=== PATIENT | female | born 1935 | race Caucasian/White ===

== ENCOUNTER 2025-04-14 10:59 | Outpatient (AMB) | payer MEDICARE, BC, SELFPAY ==
--- NOTE | 2025-04-14 11:04 | MHC.OFFVIS ---
Vital Signs 04/14/25 11:05 Height 5 ft Weight 117 lb BMI 22.8 BP 160/80 H Blood Pressure Location Lt brachial Position Sitting Pulse 63 Pulse Source Pulse Oximeter Pulse Oximetry (%) 98 Oxygen Delivery Method Room Air Intake Visit Reasons: hand pain Intake Note: Patient presents today for bilateral hand pain. Accompanied by: Self / Same As Patient Allergies azithromycin Allergy (Mild, Verified 04/14/25 11:08) Hives barium sulfate Allergy (Mild, Verified 04/14/25 11:12) Nausea cefuroxime (From Ceftin) Allergy (Mild, Verified 04/14/25 11:12) Nausea divalproex sodium (From Depakote) Allergy (Mild, Verified 04/14/25 11:12) Anxiety erythromycin base (From Erythrocin) Allergy (Mild, Verified 04/14/25 11:08) Hives hydroxyzine Allergy (Mild, Verified 04/14/25 11:12) Nausea nortriptyline Allergy (Mild, Verified 04/14/25 11:08) Hives Sulfa (Sulfonamide Antibiotics) Allergy (Mild, Verified 04/14/25 11:12) Diarrhea tetracycline Allergy (Mild, Verified 04/14/25 11:08) Hives zolpidem (From Ambien) Allergy (Mild, Verified 04/14/25 11:12) Stomach Upset HPI HPI hand pain: Details: New patient evaluation for hand pain. History is limited from patient. She denies hand pain. She reports that she has swollen hands. She has been on prednisone 5 mg daily for at least a few months. She is unable to recount when prednisone was started. She denies being on a higher dose of prednisone. She denies having joint pain prior to starting prednisone. She reports a joint swelling has not changed since being on prednisone 5 mg daily. She has not experienced any side effect from long-term prednisone use. She has history of osteoporosis. She does not have any pain in any other joint. She wishes that she could walk. She has been in a wheelchair for 2 years. She is able to stand up and use a walker at home. She has limited WET SANDER support 3 days a week. She is depressed. She saw PCP who prescribed her medication for her depression but it has not helped her. Review of system is significant for 7 lb weight loss, persistent diarrhea (attributed to anxiety), 3 pregnancies with 1 miscarriage. She denies ocular symptoms, chest pain, dyspnea, pleurisy, urinary symptoms, rash or any history of hematological abnormalities. Denies family history of rheumatological disease. Past medical history significant for hypertension, osteoporosis, right upper extremity DVT, macular degeneration and depression. Past surgical history is significant for appendectomy 1956 and back surgery 2020. Medication list reviewed with patient She denies smoking. She stopped smoking 20 years ago. She does not drink alcohol or use recreational drugs. Physical Exam Vital Signs: Last Vital Signs Pulse 63 04/14/25 11:05 BP 160/80 H 04/14/25 11:05 Pulse Ox 98 04/14/25 11:05 Oxygen Delivery Method Room Air 04/14/25 11:05 BMI result Body Mass Index 22.8 Const Other: Examined in wheelchair General: Comfortable CVS: RRR Respiratory: clear to auscultation bilaterally. Good respiratory effort Skin: No lesions seen MSK: She is able to stand up from wheelchair. She has mild synovitis right 2nd PIP with tenderness on palpation. Heberden nodes and Jeane's nodes present. She has subluxation of DIPJ knees. Left 3rd PIP is hyperextended. Normal range of motion of upper extremity. Knee flexion 90 degrees bilateral. She is able to rotate her hips. No MTP tenderness. Paste planus present. She also has subluxation right 2nd and 3rd toes and left 2nd toe. Tailor's bunions present. 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 She has been on prednisone 5 mg daily for at least a few months, which may be treating inflammatory arthritis if she had it prior to starting prednisone by PCP. History is limited during evaluation. Code(s): M79.641 - Pain in right hand; M79.642 - Pain in left hand Category: Medical Plan: X-ray bilateral hands ordered I am requesting clinical notes from PCP from her visits when she was evaluated for hand pain and swelling She had labs done in PCP's office recently. I am requesting lab results I recommend that she follow up with PCP for depression management Return to clinic in 1-2 months (2) On prednisone therapy: Code(s): Z79.52 - intermission coordinator (current) use of systemic steroids Category: Medical Plan: See above Orders: Orders XR Hand Bilat min 3v Today M79.641 - Pain in right hand, M79.642 - Pain in left hand, Z79.52 - intermission coordinator (current) use of systemic steroids Coding Level of Care Code New Pt Level 4 (88388) Diagnoses Bilateral hand pain M79.641; M79.642 On prednisone therapy Z79.52
[2025-04-14 11:05] VITALS: BP 160/80; PULSE 63; O2SAT 98; BMI 22.8
--- OUTSIDE RECORDS SUMMARY | 2025-04-14 13:07 | XMS_ITS | Encounter Summary ---
Author Organization [facility] Address [address] [place] [address] Care Team Providers Care Middle [employer] Music Teacher Name Role Phone Cherelle Bailey MD Primary Care Provider Encounter Details Date Type Department Care Team (Late st Contact Info) Description 03/17/2025 Lab Requisition [facility] - Main Lab [address] [facility] [place] [phone] Dung Mckeon MD [address] [facility] [address] [place] [phone] Urinary tract infection, site not specified Social History Tobacco Use Types Packs/Day Years Used Date Smoking Tobacco: Former Smokeless Tobacco: Never Comments Unknown Sex and Gender Information Value Date Recorded Sex Assigned at Not on file Legal Sex Female 3:02 PM EST Gender Identity Not on file Sexual Orientation Not on file documented as of this encounter Plan of Treatment Upcoming Encounters Date Type Department Care Team (Late st Contact Info) Description 08/16/2025 11:30 AM EST Consult Gastroenterology - [place] [address] [place] [phone] Jennifer Tejada PA [address] [facility] [address] [place] [address] documented as of this encounter Procedures Procedure Name Priority Date/Time Associated Diagnosis Comments BACTERIAL IDENTIFICATION AND SUSCEPTIBILITY, AEROBIC Routine 03/16/2025 12:00 AM EDT Urinary tract infection, site not specified documented in this encounter Results * (ABNORMAL) Bacterial identification and susceptibility, aerobic (03/16/2025 12:00 AM EDT) Culture, Bacterial ID and Sensitivity 1 [place] Isolated Staphylococcus capitis(A) EVER 03/19/2025 8:54 AM EDT [facility] Comment: The organism value for this result has been updated. These results have been appended to the previously preliminary verified report. Edited result: Previously reported as Gram Positive Cocci on 03/18/2025 at 1314 EDT. Other Urine specimen from urinary conduit / Unknown 03/16/2025 03/17/2025 11:02 AM EDT Narrative Organism Antibiotic Method Susceptibility Staphylococcus capitis Benzylpenicillin EVER 0.25 ug/ml: Resistant Staphylococcus capitis Oxacillin EVER <=0.25 ug/ml: Susceptible Staphylococcus capitis Gentamicin EVER <=0.5 ug/ml: Susceptible Staphylococcus capitis Ciprofloxacin EVER <=0.5 ug/ml: Susceptible Staphylococcus capitis Levofloxacin EVER 0.25 ug/ml: Susceptible Staphylococcus capitis Vancomycin EVER <=0.5 ug/ml: Susceptible Staphylococcus capitis Tetracycline EVER >=16 ug/ml: Resistant Staphylococcus capitis Nitrofurantoin EVER <=16 ug/ml: Susceptible Staphylococcus capitis Rifampin EVER <=0.5 ug/ml: Susceptible Dung Mckeon MD LAB MICROBIOLOGY - GENERAL ORDER ALFREDA Final Result [facility] [address] [place] [address], documented in this encounter Visit Diagnoses Diagnosis Urinary tract infection, site not specified documented in this encounter Care Teams Middle [employer] Music Teacher Relationship Specialty Start Date End Date Cherelle Bailey MD [address] [place] [phone] PCP - General Internal Medicine 07/29/19 documented as of this encounter
--- OUTSIDE RECORDS SUMMARY | 2025-04-14 13:07 | XMS_ITS | Clinical Summary ---
Author Organization [address] Address [address] [place] [address] Phone Care Team Providers Care Cash Controller Name Role Phone Cherelle Bailey MD Primary Care Provider [phone] Allergies Active Allergy Reactions Criticality Noted Date Comments Erythromycin Hives Tetracycline Hives 08/22/2024 Medications Gemtesa 75 mg tablet tablet Take 1 tablet (75 mg total) by mouth 1 (one) time each day. for 30 days 08/12/2024 Active traMADoL (ULTRAM) 50 mg tablet take 1 tablet by mouth every day as needed for 30 days Active traMADoL (ULTRAM) 50 mg tablet Take 1 tablet (50 mg total) by mouth at bedtime. Active rOPINIRole (REQUIP) 1 mg tablet Take 1 tablet (1 mg total) by mouth 2 (two) times a day. 08/12/2021 Active LORazepam (ATIVAN) 1 mg tablet Take 1 tablet (1 mg total) by mouth. 08/22/2021 Active lisinopriL (PRINIVIL,ZESTR IL) 20 mg tablet Take 1 tablet (20 mg total) by mouth 1 (one) time each day. Active gabapentin (NEURONTIN) 300 mg capsule Take 1 capsule (300 mg total) by mouth. Active atorvastatin (LIPITOR) 40 mg tablet Take 1 tablet (40 mg total) by mouth at bedtime. Active donepeziL (ARICEPT) 5 mg tablet Take 1 tablet (5 mg total) by mouth at bedtime. Active amLODIPine (NORVASC) 10 mg tablet Take by mouth 1 (one) time each day. Active vit A/vit C/vit E/zinc/copper (ICAPS AREDS ORAL) Take by mouth. Active clonazePAM (KlonoPIN) 0.5 mg tablet Take 1 tablet (0.5 mg total) by mouth 2 (two) times a day. Max Daily Amount: 1 mg 01/27/2020 Active Active Problems No known active problems Encounters Date Type Department Care Team Description 03/31/2025 Telephone Gastroenterology - [address] [facility] [address] [place] [address] Aníbal Douglas MD 03/17/2025 Lab Requisition [facility] - Main Lab [address] [facility] [place] [address] Dung Mckeon MD Urinary tract infection, site not specified from Last 3 Months Surgical History Surgery Date Site/Laterality Comments APPENDECTOMY PROCEDURE: HISTORICAL APPENDECTOMY COLONOSCOPY PROCEDURE: HISTORICAL COLONOSCOPY Medical History Medical History Date Comments Anxiety 07/16/2017 DX:Anxiety IBS (irritable bowel syndrome) 07/16/2017 D X:IBS (irritable bowel syndrome) Leg edema 07/16/2017 DX:Leg edema HTN (hypertension) 07/16/2017 DX:HTN (hyper tension) Venous insufficiency 07/16/2017 DX:Venous i nsufficiency; COMMENT: Chronic leg edema, workup-no cause shown for venous insufficiency Heat intolerance 07/15/2017 DX:Heat intoler ance Sensorineural hearing loss ( SNHL), bilateral 07/16/2017 DX:Sensorineural hearing los s (SNHL), bilateral; COMMENT: ENT 03/2017 Nodular thyroid disease 10/10/2017 DX:Nodul ar thyroid disease Osteoporosis 11/11/2017 DX:Osteoporosis Hyperlipidemia 11/11/2017 DX:Hyperlipidemi a Family History Medical History Relation Name Comments No Known Problems Father No Known Problems Mother Relation Name Status Comments Father Mother Social History Tobacco Use Types Packs/Day Years Used Date Smoking Tobacco: Former Smokeless Tobacco: Never Comments Unknown Sex and Gender Information Value Date Recorded Sex Assigned at Not on file Legal Sex Female 3:02 PM EST Gender Identity Not on file Sexual Orientation Not on file Obstetrics History Last Filed Vital Signs Vital Sign Reading Time Taken Comments Blood Pressure 131/62 11/27/2024 3:23 PM EDT Pulse 74 11/27/2024 3:23 PM EDT Temperature 36.6 C (97.8 F) 11/27/2024 3:23 PM EDT Respiratory Rate - - Oxygen Saturation 97% 11/27/2024 3:23 PM EDT Inhaled Oxygen Concentration - - Weight - - Height - - Body Mass Index - - Plan of Treatment Upcoming Encounters Date Type Department Care Team (Late st Contact Info) Description 08/16/2025 11:30 AM EST Consult Gastroenterology - [place] [address] [facility] [address] [place] [phone] Jennifer Tejada PA [address] [place] [address] Health Maintenance Due Date Last Done Comments DTaP,Tdap,and Td Vaccines (1 - Tdap) 01/02/1954 RSV Immunization Adult Patients (1 - 1-dose 75+ series) 01/02/2012 Zoster Vaccines (2 of 3) 10/22/2012 08/27/2012 Falls Risk Assessment 06/26/2022 Social Influencers of Health Screening 06/26/2022 Medicare Annual Wellness Visit 04/11/2023 04/11/2022 Depression Screening 07/28/2024 COVID-19 Vaccine ( season) 2025 05/14/2022, 12/16/2021, 08/12/2021, Additional history exists Influenza Vaccine (#1) 2025 , 04/29/2022, 04/28/2022, Additional history exists Hypertension/CHF/CAD Annual BMP Blood Test 01/06/2026 01/06/2025, 01/05/2025, 01/03/2025, Additional history exists Osteoporosis Screening (Bone Density Screening) 05/08/2028 05/08/2018 Cholesterol Screening (Lipid Panel) 01/06/2030 01/06/2025 Pneumococcal Vaccine: 50+ Years Completed 06/05/2017, 04/06/2004 HIB Vaccines Aged Out No longer eligi ble based on patient's age to complete this topic HPV Vaccines Aged Out No longer eligi ble based on patient's age to complete this topic Hepatitis A Vaccines Aged Out No long er eligible based on patient's age to complete this topic Hepatitis B Vaccines Aged Out No long er eligible based on patient's age to complete this topic IPV Vaccines Aged Out No longer eligi ble based on patient's age to complete this topic MMR Vaccines Aged Out No longer eligi ble based on patient's age to complete this topic Meningococcal ACWY Vaccine Aged Out N o longer eligible based on patient's age to complete this topic Meningococcal B Vaccine Aged Out No l onger eligible based on patient's age to complete this topic RSV Immunization Patients Under 20 months Aged Out No longer eligible based on patient's age to complete this topic Varicella Vaccines Aged Out No longer eligible based on patient's age to complete this topic Procedures Procedure Name Priority Date/Time Associated Diagnosis Comments BACTERIAL IDENTIFICATION AND SUSCEPTIBILITY, AEROBIC Routine 03/16/2025 12:00 AM EDT Urinary tract infection, site not specified BASIC METABOLIC PANEL Routine 01/06/2025 6:10 AM EDT Unspecified atrial fibrillation ([facility] V24, CMS/[facility] V28) Anemia, unspecified Edema, unspecified Unspecified injury of unspecified kidney, initial encounter Elevated white blood cell count, unspecified Frequency of micturition Sepsis, unspecified organism (CMS/HCC V24, CMS/[facility] V28) Hyperlipidemia, unspecified Chronic embolism and thrombosis of unspecified vein LIPID PANEL WITH REFLEX TO DIRECT LDL Routine 01/06/2025 6:10 AM EDT Unspecified atrial fibrillation (CMS/HCC V24, CMS/HCC V28) Anemia, unspecified Edema, unspecified Unspecified injury of unspecified kidney, initial encounter Elevated white blood cell count, unspecified Frequency of micturition Sepsis, unspecified organism (CMS/HCC V24, CMS/[facility] V28) Hyperlipidemia, unspecified Chronic embolism and thrombosis of unspecified vein [facility] DEXA AXIAL SKELETON Routine 05/08/2018 6:37 PM EDT Asymptomatic menopausal state from Last 3 Months or Most Recently Relevant to Health Maintenance Results * (ABNORMAL) Bacterial identification and susceptibility, aerobic (03/16/2025 12:00 AM EDT) Pathologist [facility] Culture, Bacterial ID and Sensitivity 1 [place] Isolated Staphylococcus capitis(A) EVER 03/19/2025 8:54 AM EDT [facility] Comment: The organism value for this [...] MICROBIOLOGY - GENERAL ORDER ALFREDA Final Result [facility] [address] [place] [address], [place] [phone] * Lipid panel with reflex to direct LDL (01/06/2025 6:10 AM EDT) Cholesterol 160 0 - 200 mg/dL LAB CHEMISTRY METHOD 01/06/2025 10:47 AM EDT [facility] Triglycerides 57 0 - 150 mg/dL LAB CHEMISTRY METHOD 01/06/2025 10:47 AM EDT [facility] HDL 101 >=40 mg/dL LAB CHEMISTRY METHOD 01/06/2025 10:47 AM EDT [facility] LDL Calculated 48 0 - 100 mg/dL LAB CHEMISTRY METHOD 01/06/2025 10:47 AM EDT [facility] VLDL Cholesterol [place] 11.4 mg/dL LAB CHEMISTRY METHOD 01/06/2025 10:47 AM EDT [facility] Non HDL Chol. (LDL+VLDL) 59 <145 mg/dL LAB CHEMISTRY METHOD 01/06/2025 10:47 AM [facility] Chol/HDL Ratio 1.6 0.0 - 4.4 LAB CHEMISTRY METHOD 01/06/2025 10:47 AM [facility] Blood Venous blood specimen / Unknown Venipuncture / Unknown 01/06/2025 6:10 AM EDT 01/06/2025 9:12 AM EDT us Joaquin Calhoun MD LAB BLOOD ORDERABLES Final Result [facility] [address] [place] [address], [place] [phone] * (ABNORMAL) Basic metabolic panel (01/06/2025 6:10 AM EDT) Sodium 135 133 - 145 mmol/L LAB CHEMISTRY METHOD 01/06/2025 10:47 AM [facility] Potassium 4.5 3.5 - 5.5 mmol/L LAB CHEMISTRY METHOD 01/06/2025 10:47 AM [facility] Chloride 103 96 - 110 mmol/L LAB CHEMISTRY METHOD 01/06/2025 10:47 AM [facility] CO2 24 21 - 32 mmol/L LAB CHEMISTRY METHOD 01/06/2025 10:47 AM [facility] Anion Gap 8 3 - 11 LAB CHEMISTRY METHOD 01/06/2025 10:47 AM [facility] Glucose 76 70 - 100 mg/dL LAB CHEMISTRY METHOD 01/06/2025 10:47 AM [facility] BUN 32(H) 5 - 25 mg/dL LAB CHEMISTRY METHOD 01/06/2025 10:47 AM [facility] Creatinine 0.95 0.50 - 1.10 mg/dL LAB CHEMISTRY METHOD 01/06/2025 10:47 AM [facility] eGFR 58(L) >=60 mL/min/1. 73m2 LAB CHEMISTRY METHOD 01/06/2025 10:47 AM EDT [facility] Comment:Calculation based on the Chronic Kidney Disease Epidemiology Collaboration (CKD-EPI) equation refit without adjustment for race. BUN/Creatinine Ratio 33.7 LAB CHEMISTRY METHOD 01/06/2025 10:47 AM EDT [facility] Calcium 8.8 8.5 - 10.5 mg/dL LAB CHEMISTRY METHOD 01/06/2025 10:47 AM EDT [facility] Blood Venous blood specimen / Unknown Venipuncture / Unknown 01/06/2025 6:10 AM EDT 01/06/2025 9:12 AM EDT us Joaquin Calhoun MD LAB BLOOD ORDERABLES Final Result [facility] [address] [place] [address], * TORREY DEXA AXIAL SKELETON (05/08/2018 6:37 PM EDT) Anatomical Region Laterality Modality Mammography 05/06/2018 2:14 PM EDT Narrative 05/08/2018 6:37 PM EDT [facility] Diagnostic Imaging Department [address] [place] [address] Patient: MAYA PITTS/Age/Sex: 1935 - 83 - F Unit#: [id number] Location/Status: SPDIMAM/REG CLI Mnemonic[facility] Ordering Physician: JACQUIE ALAS MD [facility] Dexa Axial Skeleton - 05/06/18 - 1518 [facility] Dexa Axial Skeleton INDICATION: POSTMENOPAUSAL Technique: Bone densitometry was performed utilizing dual energy x-ray absorptiometry (DEXA). The lumbar spine is evaluated in the AP projection at L1 and L4. L2 and L3 were omitted because of sclerotic changes. The proximal femora are evaluated in the AP projection bilaterally. Findings: AP spine: Bone mineral density: 1.069 gm/cm2 T-score: -0.8 Right femoral neck: Bone mineral density: 0.661 gm/cm2 T-score: -2.7 IMPRESSION: Findings suggesting osteoporosis, placing the patient at risk for fracture. [id number] A report detailing these results has been enclosed. Dictating Physician: JOSE HOOD MD Electronically Signed by: JOSE HOOD MD Dic Date/Time: 05/08/181835 Sign date/Time: 05/08/181836 Procedure Note Jose Hood MD - 07/16/2022 [facility] Diagnostic Imaging Department [address] [place], [place] [phone] Patient: MAYA PITTS /Age/Sex: 1935 - 83 - F Unit#: [id number] Location/Status: SPDIMAM/REG CLI Mnemonic/Ordering Site: [facility] Ordering Physician: JACQUIE ALAS MD [facility] Dexa Axial Skeleton - 05/06/18 - 1519 [facility] Dexa Axial Skeleton INDICATION: POSTMENOPAUSAL Technique: Bone densitometry was performed utilizing dual energy x-ray absorptiometry (DEXA). The lumbar spine is evaluated in the AP projectionat L1 and L4. L2 and L3 were omitted because of sclerotic changes. The proximalfemora are evaluated in the AP projection bilaterally. Findings: AP spine: Bone mineral density: 1.069 gm/cm2 T-score: -0.8 Right femoral neck: Bone mineral density: 0.661 gm/cm2 T-score: -2.7 IMPRESSION: Findings suggesting osteoporosis, placing the patient at risk forfracture. [id number] A report detailing these results has been enclosed. Dictating Physician: JOSE HOOD MD Electronically Signed by: JOSE HOOD MD Dic Date/Time: 05/08/181835 Sign date/Time: 05/08/181836 Jacquie Alas MD IMG BI PROCEDURES Final Result from Last 3 Months or Most Recently Relevant to Health Maintenance Insurance MEDICARE [facility] Advance Directives Documents on File Type Date Recorded Patient Emergency Department Nurse Expl anation Health Care Decision (hx) 07/10/2022 AD JEWELL DIRECTIVE Health Care Decision (hx) 07/10/2022 AD JEWELL DIRECTIVE Health Care Decision (hx) 07/10/2022 AD JEWELL DIRECTIVE Health Care Decision (hx) 07/02/2022 AD JEWELL DIRECTIVE Health Care Decision (hx) 07/02/2022 AD JEWELL DIRECTIVE Health Care Decision (hx) 07/02/2022 AD JEWELL DIRECTIVE Care Teams Cash Controller Relationship Specialty Start Date End Date Cherelle Bailey MD [address] [place] [phone] PCP - General Internal Medicine 07/29/19
--- OUTSIDE RECORDS SUMMARY | 2025-04-14 13:07 | XMS_ITS | Encounter Summary ---
Author Organization [facility] Address [address] [place] [address] Care Team Providers Care Manager Wound Name Role Phone Cherelle Bailey MD Primary Care Provider [phone] Encounter Details Date Type Department Care Team (Late st Contact Info) Description 12/31/2024 Lab Requisition [facility] - Main Lab [address] [facility] [place] [phone] Joaquin Calhoun MD [address] [place] [address] Unspecified injury of unspecified kidney, initial encounter Social History Tobacco Use Types Packs/Day Years [...] 08/16/2025 11:30 AM EST Consult Gastroenterology - [place] [address] [place] [phone] Jennifer Tejada PA [address] [place] [address] documented as of this encounter Procedures Procedure Name Priority Date/Time Associated Diagnosis Comments B-TYPE NATRIURETIC PEPTIDE Routine 12/31/2024 5:26 AM EDT Unspecified injury of unspecified kidney, initial encounter documented in this encounter Results * (ABNORMAL) B-type natriuretic peptide (12/31/2024 5:26 AM EDT) BNP 184(H) <=100 pcg/mL LAB CHEMISTRY METHOD 12/31/2024 9:21 AM EDT [facility] Blood Venous blood specimen / Unknown Venipuncture / Unknown 12/31/2024 5:26 AM EDT 12/31/2024 8:19 AM EDT us Joaquin Calhoun MD LAB BLOOD ORDERABLES Final Result [facility] [address] [place] [address], documented in this encounter Visit Diagnoses Diagnosis Unspecified injury of unspecified kidney, initial encounter documented in this encounter Care Teams Manager Wound Relationship Specialty Start Date End Date Cherelle Bailey MD [address] [place] [phone] PCP - General Internal Medicine 07/29/19 documented as of this encounter
--- OUTSIDE RECORDS SUMMARY | 2025-04-14 13:07 | XMS_ITS | Encounter Summary ---
Author Organization [facility] Address [address] [place] [address] Care Team Providers Care Knitting Demonstrator Name Role Phone Cherelle Bailey MD Primary Care Provider [phone] Encounter Details Date Type Department Care Team (Late Contact Info) Description 07/03/2024 Lab Requisition [facility] - Main Lab 299 [facility] [place] [phone] Joaquin Calhoun MD [address] [place] [address] Pneumonia, unspecified organism; Sepsis, unspecified organism (CMS/HCC V24, CMS/HCC V28) Social History Tobacco Use Types Packs/Day Years Used Date Smoking Tobacco: Former Smokeless Tobacco: Never Comments Unknown Sex and Gender Information Value Date Recorded Sex Assigned at Not on file Legal Sex Female 3:02 PM EST Gender Identity Not on file Sexual Orientation Not on file documented as of this encounter Plan of Treatment Upcoming Encounters Date Type Department Care Team (Late Contact Info) Description 08/16/2025 11:30 AM EST Consult Gastroenterology - [place] 175 [facility] [address] [facility] [address] [place] [phone] Jennifer Tejada PA [address] [facility] [address] [place] [address] documented as of this encounter Visit Diagnoses Diagnosis Pneumonia, unspecified organism Sepsis, unspecified organism (CMS/HCC V24, CMS/HCC V28) documented in this encounter Care Teams Knitting Demonstrator Relationship Specialty Start Date End Date Cherelle Bailey MD [address] [place] [address] PCP - General Internal Medicine 07/29/19 documented as of this encounter
--- OUTSIDE RECORDS SUMMARY | 2025-04-14 13:07 | XMS_ITS | Encounter Summary ---
Author Organization [facility] Address [address] [place] [address] Care Team Providers Care Guard Range Name Role Phone Cherelle Bailey MD Primary Care Provider [phone] Encounter Details Date Type Department Care Team (Late st Contact Info) Description 12/24/2024 Lab Requisition [facility] - Main Lab 299 [facility] [place] [phone] Joaquin Calhoun MD [address] [place] [address] Chronic embolism and thrombosis of unspecified vein Social History Tobacco Use Types Packs/Day Years [...] 08/16/2025 11:30 AM EST Consult Gastroenterology - [place] [address] [place] [phone] Jennifer Tejada PA [address] [place] [address] documented as of this encounter Procedures Procedure Name Priority Date/Time Associated Diagnosis Comments COMPLETE BLOOD COUNT Routine 12/27/2024 9:15 AM EDT Chronic embolism and thrombosis of unspecified vein BASIC METABOLIC PANEL Routine 12/27/2024 9:15 AM EDT Chronic embolism and thrombosis of unspecified vein documented in this encounter Results * (ABNORMAL) Complete blood count (12/27/2024 9:15 AM EDT) [facility] WBC 13.5(H) 4.8 - 10.8 K/mcL LAB HEMETOLOGY METHOD 12/27/2024 11:48 AM [facility] LAB RBC 3.00(L) 3.80 - 4.80 M/mcL LAB HEMETOLOGY METHOD [facility] Hemoglobin 8.1(L) 11.5 - 16.0 g/dL LAB HEMETOLOGY METHOD 12/27/2024 11:48 AM [facility] LAB Hematocrit 26.6(L) 35.0 - 47.0 % LAB HEMETOLOGY METHOD 12/27/2024 11:48 AM [facility] LAB MCV 89.0 79.0 - 98.0 FL LAB HEMETOLOGY METHOD 12/27/2024 11:48 AM [facility] LAB MCH 27.1 27.0 - 32.0 pcg LAB HEMETOLOGY METHOD 12/27/2024 11:48 AM [facility] LAB MCHC 30.5(L) 32.0 - 37.0 g/dL LAB HEMETOLOGY METHOD 12/27/2024 11:48 AM [facility] LAB RDW 17.3(H) 11.0 - 15.0 % LAB HEMETOLOGY METHOD 12/27/2024 11:48 AM [facility] LAB Platelets 663(H) 130 - 400 K/mcL LAB HEMETOLOGY METHOD 12/27/2024 11:48 AM [facility] LAB MPV 8.6 7.0 - 11.0 FL LAB HEMETOLOGY METHOD 12/27/2024 11:48 AM [facility] LAB NRBC 0.0 <1.0 % LAB HEMETOLOGY METHOD 12/27/2024 11:48 AM EDT [facility] LAB NRBC Absolute 0.00 <0.10 K/mcL LAB HEMETOLOGY METHOD 12/27/2024 11:48 AM [facility] LAB Blood Venous blood specimen / Unknown Venipuncture / Unknown 12/27/2024 9:15 AM EDT 12/27/2024 11:00 AM EDT Joaquin Calhoun MD LAB BLOOD ORDERABLES Final Result [facility] LAB [address] [place] [address], [place] [phone] * Basic metabolic panel (12/27/2024 9:15 AM EDT) Sodium 135 133 - 145 mmol/L LAB CHEMISTRY METHOD 12/27/2024 12:52 PM [facility] LAB Potassium 5.5 3.5 - 5.5 mmol/L LAB CHEMISTRY METHOD 12/27/2024 12:52 PM [facility] LAB Chloride 103 96 - 110 mmol/L LAB CHEMISTRY METHOD 12/27/2024 12:52 PM [facility] LAB CO2 22 21 - 32 mmol/L LAB CHEMISTRY METHOD 12/27/2024 12:52 PM [facility] LAB Anion Gap 10 3 - 11 LAB CHEMISTRY METHOD 12/27/2024 12:52 PM [facility] LAB Glucose 76 70 - 100 mg/dL LAB CHEMISTRY METHOD 12/27/2024 12:52 PM [facility] LAB BUN 21 5 - 25 mg/dL LAB CHEMISTRY METHOD 12/27/2024 12:52 PM [facility] LAB Creatinine 0.87 0.50 - 1.10 mg/dL LAB CHEMISTRY METHOD 12/27/2024 12:52 PM [facility] LAB eGFR 65 >=60 mL/min/1. 73m2 LAB CHEMISTRY METHOD 12/27/2024 12:52 PM EDT [facility] LAB Comment:Calculation based on the Chronic Kidney Disease Epidemiology Collaboration (CKD-EPI) equation refit without adjustment for race. BUN/Creatinine Ratio 24.1 LAB CHEMISTRY METHOD 12/27/2024 12:52 PM EDT [facility] LAB Calcium 9.0 8.5 - 10.5 mg/dL LAB CHEMISTRY METHOD 12/27/2024 12:52 PM EDT [facility] LAB Blood Venous blood specimen / Unknown Venipuncture / Unknown 12/27/2024 9:15 AM EDT 12/27/2024 11:00 AM EDT Joaquin Calhoun MD LAB BLOOD ORDERABLES Final Result [facility] LAB [address] [place] [address], documented in this encounter Visit Diagnoses Diagnosis Chronic embolism and thrombosis of unspecified vein documented in this encounter Care Teams Guard Range Relationship Specialty Start Date End Date Cherelle Bailey MD [address] [place] [phone] PCP - General Internal Medicine 07/29/19 documented as of this encounter
--- OUTSIDE RECORDS SUMMARY | 2025-04-14 13:07 | XMS_ITS | Encounter Summary ---
Author Organization [facility] Address [address] [place] [address] Care Team Providers Care Compliance Consultant Name Role Phone Cherelle Bailey MD Primary Care Provider [phone] Encounter Details Date Type Department Care Team (Late st Contact Info) Description 06/14/2024 Lab Requisition [facility] - Main Lab 299 [facility] [place] [phone] Joaquin Calhoun MD [address] [place] [address] Pneumonia, unspecified organism Social History Tobacco Use Types Packs/Day Years [...] 08/16/2025 11:30 AM EST Consult Gastroenterology - [place] 175 [facility] [address] [facility] [address] [place] [phone] Jennifer Tejada PA [address] [facility] [address] [place] [address] documented as of this encounter Procedures Procedure Name Priority Date/Time Associated Diagnosis Comments COMPLETE BLOOD COUNT Routine 06/14/2024 8:11 AM EST Pneumonia, unspecified organism COMPREHENSIVE METABOLIC PANEL Routine 06/14/2024 8:11 AM EST Pneumonia, unspecified organism documented in this encounter Results * (ABNORMAL) Comprehensive metabolic panel (06/14/2024 8:11 AM EST) Sodium 143 133 - 145 mmol/L LAB CHEMISTRY METHOD 06/14/2024 1:44 PM [facility] LAB Potassium 3.9 3.5 - 5.5 mmol/L LAB CHEMISTRY METHOD 06/14/2024 1:44 PM [facility] LAB Chloride 110 96 - 110 mmol/L LAB CHEMISTRY METHOD 06/14/2024 1:44 PM [facility] LAB CO2 24 21 - 32 mmol/L LAB CHEMISTRY METHOD 06/14/2024 1:44 PM [facility] LAB Anion Gap 9 3 - 11 LAB CHEMISTRY METHOD 06/14/2024 1:44 PM [facility] LAB Glucose 71 70 - 100 mg/dL LAB CHEMISTRY METHOD 06/14/2024 1:44 PM [facility] LAB BUN 17 5 - 25 mg/dL LAB CHEMISTRY METHOD 06/14/2024 1:44 PM [facility] LAB Creatinine 0.96 0.50 - 1.10 mg/dL LAB CHEMISTRY METHOD 06/14/2024 1:44 PM [facility] LAB eGFR 57(L) >=60 mL/min/1. 73m2 LAB CHEMISTRY METHOD 06/14/2024 1:44 PM [facility] LAB Comment:Calculation based on the Chronic Kidney Disease Epidemiology Collaboration (CKD-EPI) equation refit without adjustment for race. BUN/Creatinine Ratio 17.7 LAB CHEMISTRY METHOD 06/14/2024 1:44 PM [facility] LAB Calcium 9.2 8.5 - 10.5 mg/dL LAB CHEMISTRY METHOD 06/14/2024 1:44 PM [facility] LAB AST (SGOT) 16 10 - 42 unit/L LAB CHEMISTRY METHOD 06/14/2024 1:44 PM [facility] ALT (SGPT) 42 10 - 60 unit/L LAB CHEMISTRY METHOD 06/14/2024 1:44 PM [facility] LAB Alkaline Phosphatase 102 42 - 121 unit/L LAB CHEMISTRY METHOD 06/14/2024 1:44 PM [facility] Total Protein 5.7(L) 6.0 - 8.0 g/dL LAB CHEMISTRY METHOD 06/14/2024 1:44 PM [facility] Albumin 2.5(L) 3.2 - 5.0 g/dL LAB CHEMISTRY METHOD 06/14/2024 1:44 PM [facility] Total Bilirubin 0.2 0.0 - 1.4 mg/dL LAB CHEMISTRY METHOD 06/14/2024 1:44 PM [facility] Blood Venous blood specimen / Unknown Venipuncture / Unknown 06/14/2024 8:11 AM EST 06/14/2024 10:21 AM EST Joaquin Calhoun MD LAB BLOOD ORDERABLES Final Result [facility] [address] [place] [address], [place] [phone] * (ABNORMAL) Complete blood count (06/14/2024 8:11 AM EST) WBC 15.2(H) 4.8 - 10.8 K/mcL LAB HEMETOLOGY METHOD 06/14/2024 11:42 AM [facility] LAB RBC 3.50(L) 3.80 - 4.80 M/mcL LAB HEMETOLOGY METHOD 06/14/2024 11:42 AM [facility] LAB Hemoglobin 10.6(L) 11.5 - 16.0 g/dL LAB HEMETOLOGY METHOD 06/14/2024 11:42 AM [facility] LAB Hematocrit 33.0(L) 35.0 - 47.0 % LAB HEMETOLOGY METHOD 06/14/2024 11:42 AM [facility] LAB MCV 93.8 79.0 - 98.0 FL LAB HEMETOLOGY METHOD 06/14/2024 11:[address] [facility] MCH 30.1 27.0 - 32.0 pcg LAB HEMETOLOGY METHOD 06/14/2024 11:42 AM [facility] LAB MCHC 32.1 32.0 - 37.0 g/dL LAB HEMETOLOGY METHOD 06/14/2024 11:42 AM [facility] LAB RDW 14.5 11.0 - 15.0 % LAB HEMETOLOGY METHOD 06/14/2024 11:42 AM [facility] LAB Platelets 333 130 - 400 K/mcL LAB HEMETOLOGY METHOD 06/14/2024 11:42 AM [facility] LAB MPV 9.3 7.0 - 11.0 FL LAB HEMETOLOGY METHOD 06/14/2024 11:42 AM [facility] LAB NRBC 0.0 <1.0 % LAB HEMETOLOGY METHOD 06/14/2024 11:42 AM [facility] LAB NRBC Absolute 0.00 <0.10 K/mcL LAB HEMETOLOGY METHOD 06/14/2024 11:42 AM [facility] LAB Blood Venous blood specimen / Unknown Venipuncture / Unknown 06/14/2024 8:11 AM EST 06/14/2024 10:21 AM EST us Joaquin Calhoun MD LAB BLOOD ORDERABLES Final Result [facility] [address] [place] [address], documented in this encounter Visit Diagnoses Diagnosis Pneumonia, unspecified organism documented in this encounter Care Teams Compliance Consultant Relationship Specialty Start Date End Date Cherelle Bailey MD [address] [place] [address] PCP - General Internal Medicine 07/29/19 documented as of this encounter
--- OUTSIDE RECORDS SUMMARY | 2025-04-14 13:07 | XMS_ITS | Clinical Summary ---
Author Organization [facility] [employer] [facility] lin Address [address] [facility] [address] [address] Care Team Providers Care Filter Washer And Presser Name Role Phone Unavailable Primary Care Provider Unavailabl e Social History Tobacco Use Types Packs/Day Years Used Date Smoking Tobacco: Never Assessed Comments Unknown Sex and Gender Information Value Date Recorded Sex Assigned at Not on file Legal Sex Female 4:52 PM EDT Gender Identity Not on file Sexual Orientation Not on file Last Filed Vital Signs Vital Sign Reading Time Taken Comments Blood Pressure - - Pulse 60 12/18/2020 10:38 AM EDT Temperature 36.8 C (98.2 F) 12/18/2020 10:38 AM EDT Respiratory Rate - - Oxygen Saturation 95% 12/18/2020 10:38 AM EDT Inhaled Oxygen Concentration - - Weight - - Height - - Body Mass Index - - Plan of Treatment Health Maintenance Due Date Last Done Comments Depression: Screening Annual ly using PHQ-2/9 in Adults 18 yrs or above (or HM Modifier)([facility]) 1953 SDOH Screening Reminder: Jess medina for all adults ([facility]) 1953 Tobacco Smoking Cessation: i n Adults excluding Women: Behavioral and Pharmacotherapy Interventions ([facility]) 1955 DTaP/Tdap/Td Vaccines ([facility]) (1 - Tdap) 01/02/1956 Pneumococcal Vaccination Scr eening: Patients 50+ yrs of age ([facility]) (1 of 1 - PCV) 1987 Zoster/Shingles Vaccine Seri es Screening: Adults aged 18+ yrs (or HM Modifiers)([facility]) (1 of 2) 1987 Osteoporosis Screening to Pr event Fractures: Women aged 65 years+ ([facility]) 2002 RSV Vaccines (1 - 1-dose 75+ series) 01/02/2012 Flu Vaccination: Ages 65+: Y early High Dose Recommended (or Modifier)([facility]) 02/25/2025 [employer] Devices Not on file Insurance [facility]
--- OUTSIDE RECORDS SUMMARY | 2025-04-14 13:07 | XMS_ITS | Encounter Summary ---
Author Organization [facility], Address [address] [place] [address] Phone Care Team Providers Care Director Of It Operations Name Role Phone Jeannine Santiago Primary Care Provider [phone] Encounter Details Date Type Department Care Team (Late st Contact Info) Description 06/27/2022 Documentation Only [facility], [address] [place] [address] Jeannine Santiago [address] [place] [address] Social History Tobacco Use Types Packs/Day Years Used Date Smoking Tobacco: Former Cigarettes Q uit: 07/28/2006 Alcohol Use Standard Drinks/Week Comments No 0 (1 standard drink = 0.6 oz pur e alcohol) Comments Unknown Sex and Gender Information Value Date Recorded Sex Assigned at Not on file Legal Sex Female 5:03 PM EST Gender Identity Not on file Sexual Orientation Not on file documented as of this encounter Plan of Treatment Not on file documented as of this encounter Visit Diagnoses Not on filedocumented in this encounter Care Teams Director Of It Operations Relationship Specialty Start Date End Date Jeannine Santiago [address] [place] [address] PCP - General 06/27/22 documented as of this encounter
--- OUTSIDE RECORDS SUMMARY | 2025-04-14 13:07 | XMS_ITS | Encounter Summary ---
Author Organization [facility] Address [address] [place] [address] Care Team Providers Care Pharmacist In Charge Name Role Phone Cherelle Bailey MD Primary Care Provider [phone] Encounter Details Date Type Department Care Team (Late st Contact Info) Description 06/22/[address] [facility] - Main Lab 299 [facility] [place] [phone] Joaquin Calhoun MD [address] [place] [address] Other elevated white blood cell count Social History Tobacco Use Types Packs/Day Years [...] 08/16/2025 11:30 AM EST Consult Gastroenterology - [place] 175 [facility] [address] [facility] [address] [place] [phone] Jennifer Tejada PA [address] [facility] [address] [place] [address] documented as of this encounter Procedures Procedure Name Priority Date/Time Associated Diagnosis Comments CBC WITH AUTO DIFFERENTIAL Routine 06/22/2024 8:10 AM EST Other elevated white blood cell count CBC AND DIFFERENTIAL Routine 06/22/2024 8:10 AM EST Other elevated white blood cell count documented in this encounter Results * (ABNORMAL) CBC auto differential (06/22/2024 8:10 AM EST) [facility] WBC 16.2(H) 4.8 - 10.8 K/mcL LAB HEMETOLOGY METHOD 06/22/2024 10:20 AM [facility] LAB RBC 3.00(L) 3.80 - 4.80 M/mcL LAB HEMETOLOGY METHOD 06/22/2024 10:20 AM [facility] LAB Hemoglobin 8.9(L) 11.5 - 16.0 g/dL LAB HEMETOLOGY METHOD 06/22/2024 10:20 AM [facility] LAB Hematocrit 28.1(L) 35.0 - 47.0 % LAB HEMETOLOGY METHOD 06/22/2024 10:20 AM [facility] LAB MCV 94.9 79.0 - 98.0 FL LAB HEMETOLOGY METHOD 06/22/2024 10:20 AM [facility] LAB MCH 30.1 27.0 - 32.0 pcg LAB HEMETOLOGY METHOD 06/22/2024 10:20 AM [facility] LAB MCHC 31.7(L) 32.0 - 37.0 g/dL LAB HEMETOLOGY METHOD 06/22/2024 10:20 AM [facility] LAB RDW 14.3 11.0 - 15.0 % LAB HEMETOLOGY METHOD 06/22/2024 10:20 AM [facility] LAB Platelets 625(H) 130 - 400 K/mcL LAB HEMETOLOGY METHOD 06/22/2024 10:20 AM [facility] LAB MPV 9.4 7.0 - 11.0 FL LAB HEMETOLOGY METHOD 06/22/2024 10:20 AM [facility] LAB NRBC 0.0 <1.0 % LAB HEMETOLOGY METHOD 06/22/2024 10:20 AM [facility] LAB NRBC Absolute 0.00 <0.10 K/mcL LAB HEMETOLOGY METHOD 06/22/2024 10:20 AM [facility] Neutrophils Relative 86.0 % LAB HEMETOLOGY METHOD 06/22/2024 10:20 AM [facility] Lymphocytes Relative 8.6 % LAB HEMETOLOGY METHOD 06/22/2024 10:20 AM [facility] Monocytes Relative 4.6 % LAB HEMETOLOGY METHOD 06/22/2024 10:20 AM [facility] Eosinophils Relative 0.0 % LAB HEMETOLOGY METHOD 06/22/2024 10:20 AM [facility] Basophils Relative 0.1 % LAB HEMETOLOGY METHOD 06/22/2024 10:20 AM [facility] Immature Granulocytes Relative 0.7 % LAB HEMETOLOGY METHOD 06/22/2024 10:20 AM [facility] LAB Neutrophils Absolute 13.89(H) 1.50 - 7.00 K/mcL LAB HEMETOLOGY METHOD 06/22/2024 10:20 AM [facility] Lymphocytes Absolute 1.39 1.00 - 5.00 K/mcL LAB HEMETOLOGY METHOD 06/22/2024 10:20 AM [facility] Monocytes Absolute 0.75 0.20 - 1.00 K/mcL LAB HEMETOLOGY METHOD 06/22/2024 10:20 AM [facility] Eosinophils Absolute 0.00 0.00 - 0.50 K/mcL LAB HEMETOLOGY METHOD 06/22/2024 10:20 AM [facility] Basophils Absolute 0.02 0.00 - 0.20 K/mcL LAB HEMETOLOGY METHOD 06/22/2024 10:20 AM [facility] Immature Granulocytes Absolute 0.11(H) 0.00 - 0.03 K/mcL LAB HEMETOLOGY METHOD 06/22/2024 10:20 AM EST [facility] Blood Venous blood specimen / Unknown Venipuncture / Unknown 06/22/2024 8:10 AM EST 06/22/2024 9:07 AM EST Joaquin Calhoun MD LAB BLOOD ORDERABLES Final Result [facility] [address] [place] [address], documented in this encounter Visit Diagnoses Diagnosis Other elevated white blood cell count documented in this encounter Care Teams Pharmacist In Charge Relationship Specialty Start Date End Date Cherelle Bailey MD [address] [place] [address] PCP - General Internal Medicine 07/29/19 documented as of this encounter
--- OUTSIDE RECORDS SUMMARY | 2025-04-14 13:07 | XMS_ITS | Encounter Summary ---
Author Organization [facility] Address [address] [place] [address] Care Team Providers Care Pantograph I Engraver Name Role Phone Cherelle Bailey MD Primary Care Provider [phone] Encounter Details Date Type Department Care Team (Late st Contact Info) Description 12/31/2024 Lab Requisition [facility] - Main Lab 299 [facility] [place] [phone] Joaquin Calhoun MD [address] [place] [address] Chronic embolism and thrombosis of unspecified vein; Edema, unspecified Social History Tobacco Use Types Packs/Day Years [...] 08/16/2025 11:30 AM EST Consult Gastroenterology - [place] [address] [place] [phone] Jennifer Tejada PA [address] [place] [address] documented as of this encounter Procedures Procedure Name Priority Date/Time Associated Diagnosis Comments COMPLETE BLOOD COUNT Routine 01/03/2025 9:55 AM EDT Chronic embolism and thrombosis of unspecified vein Edema, unspecified B-TYPE NATRIURETIC PEPTIDE Routine 01/03/2025 9:55 AM EDT Chronic embolism and thrombosis of unspecified vein Edema, unspecified BASIC METABOLIC PANEL Routine 01/03/2025 9:55 AM EDT Chronic embolism and thrombosis of unspecified vein Edema, unspecified documented in this encounter Results * B-type natriuretic peptide (01/03/2025 9:55 AM EDT) BNP 86 <=100 pcg/mL LAB CHEMISTRY METHOD 01/03/2025 11:43 AM EDT [facility] Blood Venous blood specimen / Unknown 01/03/2025 9:55 AM EDT 01/03/2025 10:31 AM EDT Joaquin Calhoun MD LAB BLOOD ORDERABLES Final Result [facility] [address] [place] [address], * (ABNORMAL) Complete blood count (01/03/2025 9:55 AM EDT) Pathologist [facility] WBC 21.1(H) 4.8 - 10.8 K/mcL LAB HEMETOLOGY METHOD 01/03/2025 12:43 PM EDT [facility] RBC 2.60(L) 3.80 - 4.80 M/mcL LAB HEMETOLOGY METHOD 01/03/2025 12:43 PM EDT [facility] Hemoglobin 7.0(L) 11.5 - 16.0 g/dL LAB HEMETOLOGY METHOD 01/03/2025 12:43 PM EDT [facility] Hematocrit 23.3(L) 35.0 - 47.0 % LAB HEMETOLOGY METHOD 01/03/2025 12:43 PM EDT [facility] MCV 88.6 79.0 - 98.0 FL LAB HEMETOLOGY METHOD 01/03/2025 12:43 PM EDT [facility] MCH 26.6(L) 27.0 - 32.0 pcg LAB HEMETOLOGY METHOD 01/03/2025 12:43 PM EDT [facility] MCHC 30.0(L) 32.0 - 37.0 g/dL LAB HEMETOLOGY METHOD 01/03/2025 12:43 PM [facility] RDW 18.0(H) 11.0 - 15.0 % LAB HEMETOLOGY METHOD 01/03/2025 12:43 PM EDT [facility] Platelets 473(H) 130 - 400 K/mcL LAB HEMETOLOGY METHOD 01/03/2025 12:43 PM EDT [facility] MPV 8.9 7.0 - 11.0 FL LAB [facility]Y [facility] NRBC 0.0 <1.0 % LAB HEMETOLOGY METHOD 01/03/2025 12:43 PM [facility] NRBC Absolute 0.00 <0.10 K/mcL LAB HEMETOLOGY METHOD 01/03/2025 12:43 PM [facility] Blood Venous blood specimen / Unknown Venipuncture / Unknown 01/03/2025 9:55 AM EDT 01/03/2025 10:23 AM EDT us Joaquin Calhoun MD LAB BLOOD ORDERABLES Final Result [facility] [address] [place] [address], * (ABNORMAL) Basic metabolic panel (01/03/2025 9:55 AM EDT) Sodium 139 133 - 145 mmol/L LAB CHEMISTRY METHOD 01/03/2025 12:59 PM EDT [facility] Potassium 3.8 3.5 - 5.5 mmol/L LAB CHEMISTRY METHOD 01/03/2025 12:59 PM [facility] Chloride 107 96 - 110 mmol/L LAB CHEMISTRY METHOD 01/03/2025 12:59 PM [facility] CO2 20(L) 21 - 32 mmol/L LAB CHEMISTRY METHOD 01/03/2025 12:59 PM [facility] Anion Gap 12(H) 3 - 11 LAB CHEMISTRY METHOD 01/03/2025 12:59 PM [facility] Glucose 98 70 - 100 mg/dL LAB CHEMISTRY METHOD 01/03/2025 12:59 PM [facility] BUN 29(H) 5 - 25 mg/dL LAB CHEMISTRY METHOD 01/03/2025 12:59 PM [facility] Creatinine 1.04 0.50 - 1.10 mg/dL LAB CHEMISTRY METHOD 01/03/2025 12:59 PM [facility] eGFR 52(L) >=60 mL/min/1. 73m2 LAB CHEMISTRY METHOD 01/03/2025 12:59 PM [facility] Comment:Calculation based on the Chronic Kidney Disease Epidemiology Collaboration (CKD-EPI) equation refit without adjustment for race. BUN/Creatinine Ratio 27.9 LAB CHEMISTRY METHOD 01/03/2025 12:59 PM [facility] Calcium 8.4(L) 8.5 - 10.5 mg/dL LAB CHEMISTRY METHOD 01/03/2025 12:59 PM [facility] Blood Venous blood specimen / Unknown Venipuncture / Unknown 01/03/2025 9:55 AM EDT 01/03/2025 10:23 AM EDT us Joaquin Calhoun MD LAB BLOOD ORDERABLES Final Result [facility] [address] [place] [address], documented in this encounter Visit Diagnoses Diagnosis Chronic embolism and thrombosis of unspecified vein Edema, unspecified documented in this encounter Care Teams Pantograph I Engraver Relationship Specialty Start Date End Date Cherelle Bialey MD [address] [place] [address] PCP - General Internal Medicine 07/29/19 documented as of this encounter
--- OUTSIDE RECORDS SUMMARY | 2025-04-14 13:07 | XMS_ITS | Encounter Summary ---
Author Organization [facility] Address [address] [place] [address] Care Team Providers Care Bale Breaker Operator Name Role Phone Cherelle Bailey MD Primary Care Provider [phone] Encounter Details Date Type Department Care Team (Late st Contact Info) Description 01/06/2025 Lab Requisition [facility] - Main Lab 299 [facility] [place] [address] Joaquin Calhoun MD [address] [place] [address] Unspecified atrial fibrillation (CMS/HCC V24, CMS/HCC V28); Anemia, unspecified; Edema, unspecified; Unspecified injury of unspecified kidney, initial encounter; Elevated white blood cell count, unspecified; Frequency of micturition; Sepsis, unspecified organism (CMS/HCC V24, CMS/HCC V28); Hyperlipidemia, unspecified; Chronic embolism and thrombosis of unspecified vein [...] 08/16/2025 11:30 AM EST Consult Gastroenterology - [place] [address] [place] [phone] Jennifer Tejada PA [address] [place] [address] documented as of this encounter Procedures Procedure Name Priority Date/Time Associated Diagnosis Comments LIPID PANEL WITH REFLEX TO DIRECT LDL Routine 01/06/2025 6:10 AM EDT Unspecified atrial fibrillation ([facility] V24, [facility] V28) Anemia, unspecified Edema, unspecified Unspecified injury of unspecified kidney, initial encounter Elevated white blood cell count, unspecified Frequency of micturition Sepsis, unspecified organism ([facility] V24, [facility] V28) Hyperlipidemia, unspecified Chronic embolism and thrombosis of unspecified vein COMPLETE BLOOD COUNT Routine 01/06/2025 6:10 AM EDT Unspecified atrial fibrillation ([facility]/HCC V24, [facility] V28) Anemia, unspecified Edema, unspecified Unspecified injury of unspecified kidney, initial encounter Elevated white blood cell count, unspecified Frequency of micturition Sepsis, unspecified organism (CMS/HCC V24, [facility] V28) Hyperlipidemia, unspecified Chronic embolism and thrombosis of unspecified vein BASIC METABOLIC PANEL Routine 01/06/2025 6:10 AM EDT Unspecified atrial fibrillation ([facility]/HCC V24, CMS/HCC V28) Anemia, unspecified Edema, unspecified Unspecified injury of unspecified kidney, initial encounter Elevated white blood cell count, unspecified Frequency of micturition Sepsis, unspecified organism ([facility]/HCC V24, [facility] V28) Hyperlipidemia, unspecified Chronic embolism and thrombosis of unspecified vein documented in this encounter Results * Lipid panel with reflex to direct LDL (01/06/2025 6:10 AM EDT) [facility] Cholesterol 160 0 - 200 mg/dL LAB CHEMISTRY METHOD 01/06/2025 10:47 AM T [facility] Triglycerides 57 0 - 150 mg/dL LAB CHEMISTRY METHOD 01/06/2025 10:47 AM [facility] HDL 101 >=40 mg/dL LAB CHEMISTRY METHOD 01/06/2025 10:47 AM [facility] LDL Calculated 48 0 - 100 mg/dL LAB CHEMISTRY METHOD 01/06/2025 10:47 AM [facility] VLDL Cholesterol [place] 11.4 mg/dL LAB CHEMISTRY METHOD 01/06/2025 10:47 AM [facility] Non HDL Chol. (LDL+VLDL) 59 <145 mg/dL LAB CHEMISTRY METHOD 01/06/2025 10:47 AM [facility] Chol/HDL Ratio 1.6 0.0 - 4.4 LAB CHEMISTRY METHOD 01/06/2025 10:47 AM [facility] Blood Venous blood specimen / Unknown Venipuncture / Unknown 01/06/2025 6:10 AM EDT 01/06/2025 9:12 AM EDT us Joaquin Calhoun MD LAB BLOOD ORDERABLES Final Result [facility] [address] [place] [address], [place] [phone] * (ABNORMAL) Basic metabolic panel (01/06/2025 6:10 AM EDT) Sodium 135 133 - 145 mmol/L LAB CHEMISTRY METHOD 01/06/2025 10:47 AM [facility] Potassium 4.5 3.5 - 5.5 mmol/L LAB CHEMISTRY METHOD 01/06/2025 10:47 AM [facility] Chloride 103 96 - 110 mmol/L LAB CHEMISTRY METHOD 01/06/2025 10:47 AM [facility] CO2 24 21 - 32 mmol/L LAB CHEMISTRY METHOD 01/06/2025 10:47 AM [facility] Anion Gap 8 3 - 11 LAB CHEMISTRY METHOD 01/06/2025 10:47 AM [facility] Glucose 76 70 - 100 mg/dL LAB CHEMISTRY METHOD 01/06/2025 10:47 AM [facility] BUN 32(H) 5 - 25 mg/dL LAB CHEMISTRY METHOD 01/06/2025 10:47 AM EDT [facility] Creatinine 0.95 0.50 - 1.10 mg/dL LAB CHEMISTRY METHOD 01/06/2025 10:47 AM EDT [facility] eGFR 58(L) >=60 mL/min/1. 73m2 LAB CHEMISTRY METHOD 01/06/2025 10:47 AM T [facility] Comment:Calculation based on the Chronic Kidney Disease Epidemiology Collaboration (CKD-EPI) equation refit without adjustment for race. BUN/Creatinine Ratio 33.7 LAB CHEMISTRY METHOD 01/06/2025 10:47 AM [facility] Calcium 8.8 8.5 - 10.5 mg/dL LAB CHEMISTRY METHOD 01/06/2025 10:47 AM [facility] Blood Venous blood specimen / Unknown Venipuncture / Unknown 01/06/2025 6:10 AM EDT 01/06/2025 9:12 AM EDT us Joaquin Calhoun MD LAB BLOOD ORDERABLES Final Result [facility] [address] [place] [address], * (ABNORMAL) Complete blood count (01/06/2025 6:10 AM EDT) WBC 11.8(H) 4.8 - 10.8 K/mcL LAB HEMETOLOGY METHOD 01/06/2025 10:53 AM EDT [facility] RBC 2.80(L) 3.80 - 4.80 M/mcL LAB HEMETOLOGY METHOD 01/06/2025 10:53 AM [facility] Hemoglobin 7.5(L) 11.5 - 16.0 g/dL LAB HEMETOLOGY METHOD 01/06/2025 10:53 AM [facility] Hematocrit 25.4(L) 35.0 - 47.0 % LAB HEMETOLOGY METHOD 01/06/2025 10:53 AM EDT [facility] MCV 91.0 79.0 - 98.0 FL LAB HEMETOLOGY METHOD 01/06/2025 10:53 AM EDT [facility] MCH 26.9(L) 27.0 - 32.0 pcg LAB HEMETOLOGY METHOD 01/06/2025 10:53 AM EDT [facility] MCHC 29.5(L) 32.0 - 37.0 g/dL LAB HEMETOLOGY METHOD 01/06/2025 10:53 AM EDT [facility] RDW 18.4(H) 11.0 - 15.0 % LAB HEMETOLOGY METHOD 01/06/2025 10:53 AM [facility] Platelets 431(H) 130 - 400 K/mcL LAB HEMETOLOGY METHOD 01/06/2025 10:53 AM EDT [facility] MPV 9.0 7.0 - 11.0 FL LAB HEMETOLOGY METHOD 01/06/2025 10:53 AM EDT [facility] NRBC 0.0 <1.0 % LAB HEMETOLOGY METHOD 01/06/2025 10:53 AM [facility] NRBC Absolute 0.00 <0.10 K/mcL LAB HEMETOLOGY METHOD 01/06/2025 10:53 AM T [facility] Blood Venous blood specimen / Unknown Venipuncture / Unknown 01/06/2025 6:10 AM EDT 01/06/2025 9:12 AM EDT us Joaquin Calhoun MD LAB BLOOD ORDERABLES Final Result [facility] [address] [place] [address], documented in this encounter Visit Diagnoses Diagnosis Unspecified atrial fibrillation (CMS/HCC V24, [facility] V28) Anemia, unspecified Edema, unspecified Unspecified injury of unspecified kidney, initial encounter Elevated white blood cell count, unspecified Frequency of micturition Urinary frequency Sepsis, unspecified organism ([facility] V24, [facility] V28) Hyperlipidemia, unspecified Chronic embolism and thrombosis of unspecified vein documented in this encounter Care Teams Bale Breaker Operator Relationship Specialty Start Date End Date Cherelle Bailey MD [address] [place] [phone] PCP - General Internal Medicine 07/29/19 documented as of this encounter
--- OUTSIDE RECORDS SUMMARY | 2025-04-14 13:07 | XMS_ITS | Encounter Summary ---
Author Organization [facility], Address [address] [place] [address] Phone Care Team Providers Care Publishing Director Name Role Phone Jeannine Santiago Primary Care Provider [phone] Encounter Details Date Type Department Care Team (Late st Contact Info) Description 06/27/2022 Documentation Only [facility], [address] [place] [address] Jeannine Santiago [address] [place] [address] Social History Tobacco Use Types Packs/Day Years [...] on filedocumented in this encounter Care Teams Publishing Director Relationship Specialty Start Date End Date Jeannine Santiago [address] [place] [address] PCP - General 06/27/22 documented as of this encounter
--- OUTSIDE RECORDS SUMMARY | 2025-04-14 13:07 | XMS_ITS | Encounter Summary ---
Author Organization [facility] Address [address] [place] [address] Care Team Providers Care Store Management Trainee Name Role Phone Cherelle Bailey MD Primary Care Provider [phone] Encounter Details Date Type Department Care Team (Late st Contact Info) Description 01/07/2025 Lab Requisition [facility] - Main Lab 299 [facility] [place] [phone] Gaurav Schmidt MD [address] [place] [address] Chronic embolism and thrombosis of unspecified vein [...] 08/16/2025 11:30 AM EST Consult Gastroenterology - [place] 175 [facility] [address] [facility] [address] [place] [phone] Jennifer Tejada PA [address] [facility] [address] [place] [address] documented as of this encounter Visit Diagnoses Diagnosis Chronic embolism and thrombosis of unspecified vein documented in this encounter Care Teams Store Management Trainee Relationship Specialty Start Date End Date Cherelle Bailey MD [address] [place] [phone] PCP - General Internal Medicine 07/29/19 documented as of this encounter
--- OUTSIDE RECORDS SUMMARY | 2025-04-14 13:07 | XMS_ITS | Encounter Summary ---
Author Organization [facility] Address [address] [place] [address] Care Team Providers Care Enterprise Analyst Name Role Phone Cherelle Bailey MD Primary Care Provider [phone] Encounter Details Date Type Department Care Team (Late st Contact Info) Description 12/20/[address] [facility] - Main Lab 299 [facility] [place] [phone] Joaquin Calhoun MD [address] [place] [address] Chronic embolism and thrombosis of unspecified vein; Anemia, unspecified; Muscle weakness (generalized); Thrombocytosis, unspecified Social History Tobacco Use Types Packs/Day [...] 08/16/2025 11:30 AM EST Consult Gastroenterology - [place] [address] [facility] [address] [place] [phone] Jennifer Tejada PA [address] [facility] [address] [place] [address] documented as of this encounter Procedures Procedure Name Priority Date/Time Associated Diagnosis Comments IRON AND TIBC Routine 12/21/2024 9:53 AM EDT Chronic embolism and thrombosis of unspecified vein Anemia, unspecified Muscle weakness (generalized) Thrombocytosis, unspecified SEDIMENTATION RATE Routine 12/21/2024 9: 53 AM EDT Chronic embolism and thrombosis of unspecified vein Anemia, unspecified Muscle weakness (generalized) Thrombocytosis, unspecified COMPLETE BLOOD COUNT Routine 12/21/2024 9:53 AM EDT Chronic embolism and thrombosis of unspecified vein Anemia, unspecified Muscle weakness (generalized) Thrombocytosis, unspecified C-REACTIVE PROTEIN Routine 12/21/2024 9: 53 AM EDT Chronic embolism and thrombosis of unspecified vein Anemia, unspecified Muscle weakness (generalized) Thrombocytosis, unspecified FERRITIN Routine 12/21/2024 9:53 AM EDT Chronic embolism and thrombosis of unspecified vein Anemia, unspecified Muscle weakness (generalized) Thrombocytosis, unspecified BASIC METABOLIC PANEL Routine 12/21/2024 9:53 AM EDT Chronic embolism and thrombosis of unspecified vein Anemia, unspecified Muscle weakness (generalized) Thrombocytosis, unspecified documented in this encounter Results * (ABNORMAL) Sedimentation rate (12/21/2024 9:53 AM EDT) Pathologist [facility] Sed Rate 77(H) 0 - 30 mm/hr LAB HEMETOLOGY METHOD 12/21/2024 2:20 PM EDT [facility] Blood Venous blood specimen / Unknown Venipuncture / Unknown 12/21/2024 9:53 AM EDT 12/21/2024 11:27 AM EDT us Joaquin Calhoun MD LAB BLOOD ORDERABLES Final Result [facility] [address] [place] [address], * (ABNORMAL) Ferritin (12/21/2024 9:53 AM EDT) Pathologist [facility] Ferritin 430(H) 8 - 252 ng/mL LAB CHEMISTRY METHOD 12/21/2024 1:38 PM EDT [facility] Blood Venous blood specimen / Unknown Venipuncture / Unknown 12/21/2024 9:53 AM EDT 12/21/2024 11:27 AM EDT Joaquin Calhoun MD LAB BLOOD ORDERABLES Final Result Performing Organization Address [facility]/ZIP Co de Phone Number [facility] [address] [place] [address], [place] [phone] * Iron and TIBC (12/21/2024 9:53 AM EDT) Iron 73 40 - 150 mcg/dL LAB CHEMISTRY METHOD 12/21/2024 1:38 PM EDT [facility] TIBC 271 250 - 450 mcg/dL LAB CHEMISTRY METHOD 12/21/2024 1:38 PM EDT [facility] Iron Saturation 27 15 - 50 % LAB CHEMISTRY METHOD 12/21/2024 1:38 PM EDT [facility] Blood Venous blood specimen / Unknown Venipuncture / Unknown 12/21/2024 9:53 AM EDT 12/21/2024 11:27 AM EDT Joaquin Calhoun MD LAB BLOOD ORDERABLES Final Result Performing Organization Address City/[facility]/ZIP Co de Phone Number [facility] [address] [place] [address], [place] [phone] * (ABNORMAL) C-reactive protein (12/21/2024 9:53 AM EDT) C-Reactive Protein 1.77(H) <=0.50 mg/dL LAB CHEMISTRY METHOD 12/21/2024 1:32 PM EDT [facility] Blood Venous blood specimen / Unknown Venipuncture / Unknown 12/21/2024 9:53 AM EDT 12/21/2024 11:27 AM EDT us Joaquin Calhoun MD LAB BLOOD ORDERABLES Final Result [facility] [address] [place] [address], * (ABNORMAL) Complete blood count (12/21/2024 9:53 AM EDT) WBC 17.1(H) 4.8 - 10.8 K/mcL LAB HEMETOLOGY METHOD 12/21/2024 12:44 PM EDT [facility] RBC 2.80(L) 3.80 - 4.80 M/mcL LAB HEMETOLOGY METHOD 12/21/2024 12:44 PM EDT [facility] Hemoglobin 7.4(L) 11.5 - 16.0 g/dL LAB HEMETOLOGY METHOD 12/21/2024 12:44 PM EDT [facility] Hematocrit 24.7(L) 35.0 - 47.0 % LAB HEMETOLOGY METHOD 12/21/2024 12:44 PM EDT [facility] MCV 87.3 79.0 - 98.0 FL LAB HEMETOLOGY METHOD 12/21/2024 12:[facility] MCH 26.1(L) 27.0 - 32.0 pcg LAB HEMETOLOGY METHOD 12/21/2024 12:44 PM EDT [facility] MCHC 30.0(L) 32.0 - 37.0 g/dL LAB HEMETOLOGY METHOD 12/21/2024 12:44 [facility] RDW 15.8(H) 11.0 - 15.0 % LAB HEMETOLOGY METHOD 12/21/2024 12:44 [facility] Platelets 840(H) 130 - 400 K/mcL LAB HEMETOLOGY METHOD 12/21/2024 12:44 PM EDT [facility] MPV 8.5 7.0 - 11.0 FL LAB HEMETOLOGY METHOD 12/21/2024 12:44 PM EDT [facility] NRBC 0.0 <1.0 % [facility] 12/21/2024 12:44 PM EDT [facility] NRBC Absolute 0.00 <0.10 K/mcL [facility] 12/21/2024 12:44 PM EDT [facility] Blood Venous blood specimen / Unknown Venipuncture / Unknown 12/21/2024 9:53 AM EDT 12/21/2024 11:27 AM EDT Joaquin Calhoun MD LAB BLOOD ORDERABLES Final Result [facility] [address] [place] [address], [place] [phone] * (ABNORMAL) Basic metabolic panel (12/21/2024 9:53 AM EDT) Sodium 131(L) 133 - 145 mmol/L LAB CHEMISTRY METHOD 12/21/2024 1:57 PM [facility] Potassium 5.1 3.5 - 5.5 mmol/L LAB CHEMISTRY METHOD 12/21/2024 1:57 PM [facility] Chloride 101 96 - 110 mmol/L LAB CHEMISTRY METHOD 12/21/2024 1:57 PM [facility] CO2 20(L) 21 - 32 mmol/L LAB CHEMISTRY METHOD 12/21/2024 1:57 PM T [facility] Anion Gap 10 3 - 11 LAB CHEMISTRY METHOD 12/21/2024 1:57 PM [facility] Glucose 144(H) 70 - 100 mg/dL LAB CHEMISTRY METHOD 12/21/2024 1:57 PM [facility] BUN 39(H) 5 - 25 mg/dL LAB CHEMISTRY METHOD 12/21/2024 1:57 PM EDT [facility] Creatinine 1.14(H) 0.50 - 1.10 mg/dL LAB CHEMISTRY METHOD 12/21/2024 1:57 PM EDT [facility] eGFR 47(L) >=60 mL/min/1. 73m2 LAB CHEMISTRY METHOD 12/21/2024 1:57 PM EDT [facility] Comment:Calculation based on the Chronic Kidney Disease Epidemiology Collaboration (CKD-EPI) equation refit without adjustment for race. BUN/Creatinine Ratio 34.2 LAB CHEMISTRY METHOD 12/21/2024 1:57 PM EDT [facility] Calcium 9.1 8.5 - 10.5 mg/dL LAB CHEMISTRY METHOD 12/21/2024 1:57 PM EDT [facility] Blood Venous blood specimen / Unknown Venipuncture / Unknown 12/21/2024 9:53 AM EDT 12/21/2024 11:27 AM EDT us Joaquin Calhoun MD LAB BLOOD ORDERABLES Final Result [facility] [address] [place] [address], documented in this encounter Visit Diagnoses Diagnosis Chronic embolism and thrombosis of unspecified vein Anemia, unspecified Muscle weakness (generalized) Thrombocytosis, unspecified documented in this encounter Care Teams Enterprise Analyst Relationship Specialty Start Date End Date Cherelle Bailey MD [address] [place] [address] PCP - General Internal Medicine 07/29/19 documented as of this encounter
--- OUTSIDE RECORDS SUMMARY | 2025-04-14 13:07 | XMS_ITS | Encounter Summary ---
Author Organization [facility] Address [address] [place] [address] Care Team Providers Care Wood Piler Name Role Phone Cherelle Bailey MD Primary Care Provider [phone] Encounter Details Date Type Department Care Team (Late st Contact Info) Description 06/18/2024 Lab Requisition [facility] - Main Lab [address] [facility] [place] [phone] Joaquin Calhoun MD [address] [place] [address] Pneumonia, unspecified organism; Sepsis, unspecified organism (CMS/HCC [...] 08/16/2025 11:30 AM EST Consult Gastroenterology - [place] [address] [facility] [address] [facility] [address] [place] [phone] Jennifer Tejada PA [address] [facility] [address] [place] [address] documented as of this encounter Procedures Procedure Name Priority Date/Time Associated Diagnosis Comments COMPLETE BLOOD COUNT Routine 06/21/2024 8:39 AM EST Pneumonia, unspecified organism Sepsis, unspecified organism (CMS/HCC) BASIC METABOLIC PANEL Routine 06/21/2024 8:39 AM EST Pneumonia, unspecified organism Sepsis, unspecified organism (CMS/HCC) documented in this encounter Results * (ABNORMAL) Basic metabolic panel (06/21/2024 8:39 AM EST) Sodium 135 133 - 145 mmol/L LAB CHEMISTRY METHOD 06/21/2024 12:51 PM [facility] Potassium 4.5 3.5 - 5.5 mmol/L LAB CHEMISTRY METHOD 06/21/2024 12:51 PM [facility] Chloride 102 96 - 110 mmol/L LAB CHEMISTRY METHOD 06/21/2024 12:51 PM [facility] CO2 24 21 - 32 mmol/L LAB CHEMISTRY METHOD 06/21/2024 12:51 PM [facility] Anion Gap 9 3 - 11 LAB CHEMISTRY METHOD 06/21/2024 12:51 PM [facility] Glucose 70 70 - 100 mg/dL LAB CHEMISTRY METHOD 06/21/2024 12:51 PM [facility] BUN 39(H) 5 - 25 mg/dL LAB CHEMISTRY METHOD 06/21/2024 12:51 PM [facility] LAB Comment:Results verified by repeat testing Creatinine 1.61(H) 0.50 - 1.10 mg/dL LAB CHEMISTRY METHOD 06/21/2024 12:51 PM [facility] eGFR 31(L) >=60 mL/min/1. 73m2 LAB CHEMISTRY METHOD 06/21/2024 12:51 PM [facility] LAB Comment:Calculation based on the Chronic Kidney Disease Epidemiology Collaboration (CKD-EPI) equation refit without adjustment for race. BUN/Creatinine Ratio 24.2 LAB CHEMISTRY METHOD 06/21/2024 12:51 PM [facility] Calcium 8.9 8.5 - 10.5 mg/dL LAB CHEMISTRY METHOD 06/21/2024 12:51 PM [facility] Blood Venous blood specimen / Unknown Venipuncture / Unknown 06/21/2024 8:39 AM EST 06/21/2024 11:18 AM EST Joaquin Calhoun MD LAB BLOOD ORDERABLES Final Result [facility] [address] [place] [address], * (ABNORMAL) Complete blood count (06/21/2024 8:39 AM EST) [facility] Signature WBC 27.5(H) 4.8 - 10.8 K/mcL LAB HEMETOLOGY METHOD 06/21/2024 12:05 PM [facility] RBC 3.10(L) 3.80 - 4.80 M/mcL LAB HEMETOLOGY METHOD 06/21/2024 12:05 PM [facility] Hemoglobin 9.3(L) 11.5 - 16.0 g/dL LAB HEMETOLOGY METHOD 06/21/2024 12:05 PM [facility] Hematocrit 29.7(L) 35.0 - 47.0 % LAB HEMETOLOGY METHOD 06/21/2024 12:05 PM [facility] MCV 95.5 79.0 - 98.0 FL LAB HEMETOLOGY METHOD 06/21/2024 12:05 PM [facility] MCH 29.9 27.0 - 32.0 pcg LAB HEMETOLOGY METHOD 06/21/2024 12:05 PM [facility] MCHC 31.3(L) 32.0 - 37.0 g/dL LAB HEMETOLOGY METHOD 06/21/2024 12:05 PM [facility] RDW 14.2 11.0 - 15.0 % LAB HEMETOLOGY METHOD 06/21/2024 12:05 PM [facility] Platelets 645(H) 130 - 400 K/mcL LAB HEMETOLOGY METHOD 06/21/2024 12:05 PM EST [facility] MPV 9.3 7.0 - 11.0 FL LAB HEMETOLOGY METHOD 06/21/2024 12:05 PM EST [facility] NRBC 0.0 <1.0 % LAB HEMETOLOGY METHOD 06/21/2024 12:05 PM EST [facility] LAB NRBC Absolute 0.00 <0.10 K/mcL LAB HEMETOLOGY METHOD 06/21/2024 12:05 PM EST [facility] Blood Venous blood specimen / Unknown Venipuncture / Unknown 06/21/2024 8:39 AM EST 06/21/2024 11:07 AM EST us Joaquin Calhoun MD LAB BLOOD ORDERABLES Final Result [facility] [address] [place] [address], documented in this encounter Visit Diagnoses Diagnosis Pneumonia, unspecified organism Sepsis, unspecified organism (CMS/HCC V24, CMS/HCC V28) documented in this encounter Care Teams Wood Piler Relationship Specialty Start Date End Date Cherelle Bailey MD [address] [place] [phone] PCP - General Internal Medicine 07/29/19 documented as of this encounter
--- OUTSIDE RECORDS SUMMARY | 2025-04-14 13:07 | XMS_ITS | Encounter Summary ---
Author Organization [facility] Address [address] [place] [address] Care Team Providers Care Composition Teacher Name Role Phone Cherelle Bailey MD Primary Care Provider [phone] Encounter Details Date Type Department Care Team (Late st Contact Info) Description 01/04/2025 Lab Requisition [facility] - Main Lab [address] [facility] [place] [phone] Joaquin Calhoun MD [address] [place] [address] Anemia, unspecified Social History Tobacco Use Types Packs/Day [...] 08/16/2025 11:30 AM EST Consult Gastroenterology - [place] [address] [facility] [address] [place] [phone] Jennifer Tejada PA [address] [facility] [address] [place] [phone] documented as of this encounter Procedures Procedure Name Priority Date/Time Associated Diagnosis Comments COMPLETE BLOOD COUNT Routine 01/05/2025 6:57 AM EDT Anemia, unspecified BASIC METABOLIC PANEL Routine 01/05/2025 6:57 AM EDT Anemia, unspecified documented in this encounter Results * (ABNORMAL) Basic metabolic panel (01/05/2025 6:57 AM EDT) Sodium 137 133 - 145 mmol/L LAB CHEMISTRY METHOD 01/05/2025 12:59 PM [facility] Potassium 4.2 3.5 - 5.5 mmol/L LAB CHEMISTRY METHOD 01/05/2025 12:59 PM [facility] Chloride 104 96 - 110 mmol/L LAB CHEMISTRY METHOD 01/05/2025 12:59 PM [facility] CO2 25 21 - 32 mmol/L LAB CHEMISTRY METHOD 01/05/2025 12:59 PM [facility] Anion Gap 8 3 - 11 LAB CHEMISTRY METHOD 01/05/2025 12:59 PM [facility] Glucose 106(H) 70 - 100 mg/dL LAB CHEMISTRY METHOD 01/05/2025 12:59 PM [facility] BUN 27(H) 5 - 25 mg/dL LAB CHEMISTRY METHOD 01/05/2025 12:59 PM [facility] Creatinine 1.00 0.50 - 1.10 mg/dL LAB CHEMISTRY METHOD 01/05/2025 12:59 PM [facility] eGFR 54(L) >=60 mL/min/1. 73m2 LAB CHEMISTRY METHOD 01/05/2025 12:59 PM [facility] Comment:Calculation based on the Chronic Kidney Disease Epidemiology Collaboration (CKD-EPI) equation refit without adjustment for race. BUN/Creatinine Ratio 27.0 LAB CHEMISTRY METHOD 01/05/2025 12:59 PM [facility] Calcium 8.7 8.5 - 10.5 mg/dL LAB CHEMISTRY METHOD 01/05/2025 12:59 PM [facility] Blood Venous blood specimen / Unknown Venipuncture / Unknown 01/05/2025 6:57 AM EDT 01/05/2025 9:54 AM EDT us Joaquin Calhoun MD LAB BLOOD ORDERABLES Final Result [facility] [address] [place] [address], * (ABNORMAL) Complete blood count (01/05/2025 6:57 AM EDT) WBC 11.6(H) 4.8 - 10.8 K/mcL LAB HEMETOLOGY METHOD 01/05/2025 10:58 AM EDT [facility] RBC 2.60(L) 3.80 - 4.80 M/mcL LAB HEMETOLOGY METHOD 01/05/2025 10:58 AM EDT [facility] Hemoglobin 7.1(L) 11.5 - 16.0 g/dL LAB HEMETOLOGY METHOD [facility]/05[facility]2025 10[facility] Hematocrit 23.5(L) 35.0 - 47.0 % LAB HEMETOLOGY METHOD 01/05/2025 10:58 [facility] MCV 90.4 79.0 - 98.0 FL LAB HEMETOLOGY METHOD 01/05/2025 10:58 [facility] MCH 27.3 27.0 - 32.0 pcg LAB HEMETOLOGY METHOD 01/05/2025 10:58 [facility] MCHC 30.2(L) 32.0 - 37.0 g/dL LAB HEMETOLOGY METHOD 01/05/2025 10:58 [facility] RDW 18.7(H) 11.0 - 15.0 % LAB HEMETOLOGY METHOD 01/05/2025 10:58 AM [facility] Platelets 430(H) 130 - 400 K/mcL LAB HEMETOLOGY METHOD 01/05/2025 10:58 AM EDT [facility] MPV 9.0 7.0 - 11.0 FL LAB HEMETOLOGY METHOD 01/05/2025 10:58 AM EDT [facility] NRBC 0.0 <1.0 % LAB HEMETOLOGY METHOD 01/05/2025 10:58 AM EDT [facility] NRBC Absolute 0.00 <0.10 K/mcL LAB HEMETOLOGY METHOD 01/05/2025 10:58 AM EDT [facility] Blood Venous blood specimen / Unknown Venipuncture / Unknown 01/05/2025 6:57 AM EDT 01/05/2025 9:54 AM EDT Joaquin Calhoun MD LAB BLOOD ORDERABLES Final Result [facility] [address] [place] [address], documented in this encounter Visit Diagnoses Diagnosis Anemia, unspecified documented in this encounter Care Teams Composition Teacher Relationship Specialty Start Date End Date Cherelle Bailey MD [address] [place] [phone] PCP - General Internal Medicine 07/29/19 documented as of this encounter
--- OUTSIDE RECORDS SUMMARY | 2025-04-14 13:07 | XMS_ITS | Encounter Summary ---
Author Organization [facility] Address [address] [place] [address] Care Team Providers Care Field Marketer Name Role Phone Cherelle Bailey MD Primary Care Provider [phone] Encounter Details Date Type Department Care Team (Late st Contact Info) Description 06/15/2024 Lab Requisition [facility] - Main Lab [address] [facility] [place] [phone] Joaquin Calhoun MD [address] [place] [address] Anemia, unspecified Social History Tobacco Use Types [...] 08/16/2025 11:30 AM EST Consult Gastroenterology - [place] [address] [facility] [address] [place] [phone] Jennifer Tejada PA [address] [facility] [address] [place] [phone] documented as of this encounter Procedures Procedure Name Priority Date/Time Associated Diagnosis Comments COMPLETE BLOOD COUNT Routine 06/16/2024 6:37 AM EST Anemia, unspecified documented in this encounter Results * (ABNORMAL) Complete blood count (06/16/2024 6:37 AM EST) WBC 10.2 4.8 - 10.8 K/mcL LAB HEMETOLOGY METHOD 06/16/2024 10:07 AM [facility] RBC 3.30(L) 3.80 - 4.80 M/[facility] LAB HEMETOLOGY METHOD 06/16/2024 10:07 AM [facility] Hemoglobin 9.8(L) 11.5 - 16.0 g/dL LAB HEMETOLOGY METHOD 06/16/2024 10:07 AM [facility] Hematocrit 30.5(L) 35.0 - 47.0 % LAB HEMETOLOGY METHOD 06/16/2024 10:07 AM [facility] MCV 93.3 79.0 - 98.0 FL LAB HEMETOLOGY METHOD 06/16/2024 10:07 AM [facility] MCH 30.0 27.0 - 32.0 pcg LAB HEMETOLOGY METHOD 06/16/2024 10:07 AM [facility] MCHC 32.1 32.0 - 37.0 g/dL LAB HEMETOLOGY METHOD 06/16/2024 10:07 AM [facility] RDW 13.9 11.0 - 15.0 % LAB HEMETOLOGY METHOD 06/16/2024 10:07 AM [facility] Platelets 311 130 - 400 K/[facility] LAB HEMETOLOGY METHOD 06/16/2024 10:07 AM [facility] MPV 9.2 7.0 - 11.0 FL LAB HEMETOLOGY METHOD 06/16/2024 10:07 AM [facility] NRBC 0.0 <1.0 % LAB HEMETOLOGY METHOD 06/16/2024 10:07 AM [facility] NRBC Absolute 0.00 <0.10 K/mcL LAB HEMETOLOGY METHOD 06/16/2024 10:07 AM [facility] Blood Venous blood specimen / Unknown Venipuncture / Unknown 06/16/2024 6:37 AM EST 06/16/2024 9:57 AM EST us Joaquin Calhoun MD LAB BLOOD ORDERABLES Final Result [facility] [address] [place] [address], documented in this encounter Visit Diagnoses Diagnosis Anemia, unspecified documented in this encounter Care Teams Field Marketer Relationship Specialty Start Date End Date Cherelle Bailey MD [address] [place] [phone] PCP - General Internal Medicine 07/29/19 documented as of this encounter
--- OUTSIDE RECORDS SUMMARY | 2025-04-14 13:07 | XMS_ITS | Encounter Summary ---
Author Organization [facility] Address [address] [place] [address] Care Team Providers Care Construction Craft Laborer Name Role Phone Cherelle Bailey MD Primary Care Provider [phone] Encounter Details Date Type Department Care Team (Late st Contact Info) Description 12/30/2024 Lab Requisition [facility] - Main Lab [address] [facility] [place] [phone] Joaquin Calhoun MD [address] [place] [address] Urinary tract infection, site not specified; Elevated white blood cell count, unspecified; Frequency of micturition Social History Tobacco Use Types Packs/Day Years [...] 08/16/2025 11:30 AM EST Consult Gastroenterology - [place] [address] [place] [phone] Jennifer Tejada PA [address] [place] [address] documented as of this encounter Procedures Procedure Name Priority Date/Time Associated Diagnosis Comments URINALYSIS WITH REFLEX MICROSCOPIC Routine 12/29/2024 2:00 PM EDT Urinary tract infection, site not specified Elevated white blood cell count, unspecified Frequency of micturition URINALYSIS WITH REFLEX MICROSCOPIC Routine 12/29/2024 2:00 PM EDT Urinary tract infection, site not specified Elevated white blood cell count, unspecified Frequency of micturition CULTURE URINE Routine 12/29/2024 2:00 PM EDT Urinary tract infection, site not specified Elevated white blood cell count, unspecified Frequency of micturition documented in this encounter Results * (ABNORMAL) Urinalysis with reflex microscopic (12/29/2024 2:00 PM EDT) [facility] [place] Urine 1.012 1.003 - 1.030 LAB URINALYSIS - AUTOMATED METHOD 12/30/2024 8:59 AM [facility] pH, Urine 6.0 5.0 - 8.0 pH LAB URINALYSIS - AUTOMATED METHOD 12/30/2024 8:59 AM [facility] Leukocytes, Urine Trace(A) Negative LAB URINALYSIS - AUTOMATED METHOD 12/30/2024 8:59 AM [facility] Nitrite, Urine Negative Negative LAB URINALYSIS - AUTOMATED METHOD 12/30/2024 8:59 AM [facility] Protein, Urine Negative <=Trace mg/dL LAB URINALYSIS - AUTOMATED METHOD 12/30/2024 8:59 AM [facility] Glucose, Urine Negative Negative mg/dL LAB URINALYSIS - AUTOMATED METHOD 12/30/2024 8:59 AM [facility] Ketones, Urine Negative Negative mg/dL LAB URINALYSIS - AUTOMATED METHOD 12/30/2024 8:59 AM [facility] Urobilinogen, Urine 0.2 0.2 - 1.0 mg/dL LAB URINALYSIS - AUTOMATED METHOD 12/30/2024 8:59 AM [facility] Bilirubin, Urine Negative Negative LAB URINALYSIS - AUTOMATED METHOD 12/30/2024 8:59 AM [facility] Blood, Urine Negative Negative LAB URINALYSIS - AUTOMATED METHOD 12/30/2024 8:59 AM EDT [facility] RBC, Urine 1.1 0 - 4 /HPF LAB URINALYSIS - AUTOMATED METHOD 12/30/2024 8:59 AM EDT [facility] WBC, Urine 2.3 0 - 4 /HPF LAB URINALYSIS - AUTOMATED METHOD 12/30/2024 8:59 AM EDT [facility] Squamous Epithelial, Urine 73(H) 0 - 60 /LPF LAB URINALYSIS - AUTOMATED METHOD 12/30/2024 8[facility] Bacteria, Urine Negative Negative /HPF LAB URINALYSIS - AUTOMATED METHOD 12/30/2024 8:59 AM [facility] Hyaline Casts, Urine 0.0 0 - 3 /LPF LAB URINALYSIS - AUTOMATED METHOD 12/30/2024 8:59 AM [facility] Urine Urine specimen obtained by clean catch procedure / Unknown Non-blood Collection / Unknown 12/29/2024 2:00 PM EDT 12/30/2024 8:37 AM EDT us Joaquin Calhoun MD LAB URINE ORDERABLES Final Result [facility] [address] [place] [address], * Culture urine (12/29/2024 2:00 PM EDT) Culture, Urine <10,000 CFU/mL gram negative bacilli, insignificant count, no further workup 12/31/2024 9:17 AM EDT [facility] Urine Urine specimen obtained by clean catch procedure / Unknown Non-blood Collection / Unknown 12/29/2024 2:00 PM EDT 12/30/2024 8:37 AM EDT us Joaquin Calhoun MD LAB MICROBIOLOGY - GENERAL ORDERABLES Final Result [facility] [address] [place] [address], documented in this encounter Visit Diagnoses Diagnosis Urinary tract infection, site not specified Elevated white blood cell count, unspecified Frequency of micturition Urinary frequency documented in this encounter Care Teams Construction Craft Laborer Relationship Specialty Start Date End Date Cherelle Bailey MD [address] [place] [phone] PCP - General Internal Medicine 07/29/19 documented as of this encounter
--- OUTSIDE RECORDS SUMMARY | 2025-04-14 13:07 | XMS_ITS | Clinical Summary ---
Author Organization [facility] Address [address] [facility] [address] [place] [address] Phone Care Team Providers Care Merchandise Displayer Name Role Phone Jeannine Santiago Primary Care Provider [phone] Allergies Active Allergy Reactions Criticality Noted Date Comments Acetic Acid Other (see comments) 04/18/2014 Other reaction(s): Other (See Comments) Azithromycin Diarrhea,Other (see comments) 09/03/2021 Barium Sulfate Other (see comments) 04/18/2014 Other reaction(s): Other (See Comments) Cefuroxime Other (see comments) 09/03/2021 Cephalexin Other (see comments) 04/18/2014 Other reaction(s): Other (See Comments) Erythromycin 09/03/2021 Hydroxyzine Other (see comments) 04/18/2014 Other reaction(s): Other (See Comments) Nortriptyline Anxiety,Other (see comments) Low 04/18/2014 Other reaction(s): Other (See Comments) Tetracycline 09/03/2021 Valproic Acid Anxiety Low 09/03/2021 Zolpidem Other (see comments) 09/03/2021 Medications amLODIPine (NORVASC) 5 MG tablet Take 5 mg by mouth 2 Active apixaban (Eliquis) 5 MG tablet Take 1 tablet by mouth in the morning and 1 tablet in the evening. Active ARIPiprazole (ABILIFY) 2 MG tablet Take 2 mg by mouth 1 (one) time each day For 30 days 2 Active Cholecalciferol 75 MCG (3000 UT) tablet 4 Active gabapentin (NEURONTIN) 100 MG capsule Take 100 mg by mouth 2 Active HYDROcodone-kami taminophen (NORCO) 5-325 MG per tablet TAKE 1 TABLET BY MOUTH TWICE A DAY NEEDED FOR PAIN *NO DRIVING WHILE TAKING* 2 Active lidocaine (LIDODERM) 5 % patch Apply topically 2 Active LORazepam (ATIVAN) 1 MG tablet Take 1 mg by mouth 2 Active rOPINIRole (REQUIP) 1 MG tablet TAKE 1 TABLET BY MOUTH AT BEDTIME 90 2 Active tolterodine (DETROL) 1 MG tablet Take 1 mg by mouth 2 Active traMADol (ULTRAM) 50 MG tablet Take 50 mg by mouth 3 (three) times a day if needed 1 Active traZODone (DESYREL) 50 MG tablet Take 50 mg by mouth 2 Active Active Problems Problem Noted Date Diagnosed Date Acquired cyst of kidney 12/03/2022 Acute nontraumatic kidney injury 09/03/2021 Arthritis 09/03/2021 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 Edema of lower leg 09/03/2021 Hyperlipidemia 09/03/2021 Essential hypertension 09/03/2021 Hyponatremia 09/03/2021 Osteoporosis 09/03/2021 Fibromyalgia 04/18/2014 Overview (09/03/2021): Fibromyalgia Recurrent major depressive episodes, moderate Immunizations Immunization Administration Dates Next Due Moderna SARS-COV-2 08/12/2021 Pfizer SARS-COV-2 08/06/2020 Pneumococcal Polysaccharide 04/06/2004 Family History Medical History Relation Comments Dementia Father Heart disease Father Heart disease Mother Hypertension Mother Relation Status Comments Father Mother Social History Tobacco [...] Sign Reading Time Taken Comments Blood Pressure 122/76 12/24/2018 12:00 PM EDT Pulse 80 12/24/2018 12:00 PM EDT Temperature - - Respiratory Rate - - Oxygen Saturation 99% 11/24/2018 12:00 PM EDT Inhaled Oxygen Concentration - - Weight 63 kg (138 lb 12.8 oz) 12/24/2018 12:00 P M EDT Height 154.9 cm (5' 1 ) 12/24/2018 12:00 PM EDT Body Mass Index 26.23 12/24/2018 12:00 PM EDT Plan of Treatment Health Maintenance Due Date Last Done Comments Pneumococcal Vaccine: 50+ Ye ars (2 of 2 - PCV) 04/06/2005 04/06/2004 Influenza Vaccine (#1) 2025 Pneumococcal Vaccine: Peds ( 0 to 5 Years) and At-Risk Patients (6 to 49 Years) Discontinued 04/06/2004 Hepatitis B Vaccine Aged Out No longe r eligible based on patient's age to complete this topic Insurance Medicare [facility] Medicare [facility] Care Teams Merchandise Displayer Relationship Specialty Start Date End Date Jeannine Santiago [facility] [address] [place] [address] PCP - General 06/27/22
--- OUTSIDE RECORDS SUMMARY | 2025-04-14 13:07 | XMS_ITS | Encounter Summary ---
Author Organization [facility] Address [address] [place] [address] Care Team Providers Care Manufacturing Supervisor 2Nd Shift Name Role Phone Cherelle Bailey MD Primary Care Provider [phone] Encounter Details Date Type Department Care Team (Late st Contact Info) Description 12/15/2024 Lab Requisition [facility] - Main Lab [address] [facility] [place] [phone] Joaquin Calhoun MD [address] [place] [address] Anemia, unspecified; Acute embolism and thrombosis of unspecified deep veins of unspecified lower extremity (CMS/HCC V24, CMS/HCC V28) Social History Tobacco [...] 08/16/2025 11:30 AM EST Consult Gastroenterology - [place] [address] [place] [phone] Jennifer Tejada PA [address] [place] [address] documented as of this encounter Procedures Procedure Name Priority Date/Time Associated Diagnosis Comments COMPLETE BLOOD COUNT Routine 12/15/2024 6:29 AM EDT Anemia, unspecified Acute embolism and thrombosis of unspecified deep veins of unspecified lower extremity (CMS/HCC V24, CMS/HCC V28) COMPREHENSIVE METABOLIC PANEL Routine 12/15/2024 6:29 AM EDT Anemia, unspecified Acute embolism and thrombosis of unspecified deep veins of unspecified lower extremity ([facility] V24, [facility] V28) documented in this encounter Results * (ABNORMAL) Comprehensive metabolic panel (12/15/2024 6:29 AM EDT) Sodium 135 133 - 145 mmol/L LAB CHEMISTRY METHOD 12/15/2024 10:57 AM [facility] Potassium 5.1 3.5 - 5.5 mmol/L LAB CHEMISTRY METHOD 12/15/2024 10:57 AM [facility] Chloride 103 96 - 110 mmol/L LAB CHEMISTRY METHOD 12/15/2024 10:57 AM [facility] CO2 22 21 - 32 mmol/L LAB CHEMISTRY METHOD 12/15/2024 10:57 AM [facility] Anion Gap 10 3 - 11 LAB CHEMISTRY METHOD 12/15/2024 10:57 AM [facility] Glucose 80 70 - 100 mg/dL LAB CHEMISTRY METHOD 12/15/2024 10:57 AM [facility] BUN 23 5 - 25 mg/dL LAB CHEMISTRY METHOD 12/15/2024 10:57 AM [facility] Creatinine 0.95 0.50 - 1.10 mg/dL LAB CHEMISTRY METHOD 12/15/2024 10:57 AM [facility] eGFR 58(L) >=60 mL/min/1. 73m2 LAB CHEMISTRY METHOD 12/15/2024 10:57 AM [facility] LAB Comment:Calculation based on the Chronic Kidney Disease Epidemiology Collaboration (CKD-EPI) equation refit without adjustment for race. BUN/Creatinine Ratio 24.2 LAB CHEMISTRY METHOD 12/15/2024 10:57 AM [facility] Calcium 8.7 8.5 - 10.5 mg/dL LAB CHEMISTRY METHOD 12/15/2024 10:57 AM [facility] AST (SGOT) 14 10 - 42 unit/L LAB CHEMISTRY METHOD 12/15/2024 10:57 AM [facility] ALT (SGPT) 20 10 - 60 unit/L LAB CHEMISTRY METHOD 12/15/2024 10:57 AM [facility] Alkaline Phosphatase 78 42 - 121 unit/L LAB CHEMISTRY METHOD 12/15/2024 10:57 AM [facility] Total Protein 5.9(L) 6.0 - 8.0 g/dL LAB CHEMISTRY METHOD 12/15/2024 10:57 AM [facility] Albumin 2.0(L) 3.2 - 5.0 g/dL LAB CHEMISTRY METHOD 12/15/2024 10:57 AM [facility] Total Bilirubin 0.2 0.0 - 1.4 mg/dL LAB CHEMISTRY METHOD 12/15/2024 10:57 AM [facility] Blood Venous blood specimen / Unknown Venipuncture / Unknown 12/15/2024 6:29 AM EDT 12/15/2024 9:55 AM EDT Joaquin Calhoun MD LAB BLOOD ORDERABLES Final Result [facility] LAB [address] [place] [address], * (ABNORMAL) Complete blood count (12/15/2024 6:29 AM EDT) WBC 15.1(H) 4.8 - 10.8 K/[facility] LAB HEMETOLOGY METHOD 12/15/2024 10:21 AM EDT [facility] RBC 3.00(L) 3.80 - 4.80 M/[facility] LAB HEMETOLOGY METHOD 12/15/2024 10:21 AM [facility] Hemoglobin 7.6(L) 11.5 - 16.0 g/dL LAB HEMETOLOGY METHOD 12/15/2024 10:21 AM [facility] Hematocrit 25.1(L) 35.0 - 47.0 % LAB HEMETOLOGY METHOD 12/15/2024 10:21 AM [facility] LAB MCV 84.8 79.0 - 98.0 FL LAB HEMETOLOGY METHOD 12/15/2024 10:21 AM [facility] LAB MCH 25.7(L) 27.0 - 32.0 pcg LAB HEMETOLOGY METHOD 12/15/2024 10:21 AM [facility] LAB MCHC 30.3(L) 32.0 - 37.0 g/dL LAB HEMETOLOGY METHOD 12/15/2024 10:21 AM [facility] LAB RDW 14.9 11.0 - 15.0 % LAB HEMETOLOGY METHOD 12/15/2024 10:21 AM [facility] LAB Platelets 702(H) 130 - 400 K/mcL LAB HEMETOLOGY METHOD 12/15/2024 10:21 AM [facility] LAB MPV 8.8 7.0 - 11.0 FL LAB HEMETOLOGY METHOD 12/15/2024 10:21 AM [facility] LAB NRBC 0.0 <1.0 % LAB HEMETOLOGY METHOD 12/15/2024 10:21 AM [facility] LAB NRBC Absolute 0.00 <0.10 K/mcL LAB HEMETOLOGY METHOD 12/15/2024 10:21 AM [facility] Blood Venous blood specimen / Unknown Venipuncture / Unknown 12/15/2024 6:29 AM EDT 12/15/2024 9:55 AM EDT us Joaquin B Jagadeesan MD LAB BLOOD ORDERABLES Final Result [facility] [address] [place] [address], documented in this encounter Visit Diagnoses Diagnosis Anemia, unspecified Acute embolism and thrombosis of unspecified deep veins of unspecified lower extremity (CMS/HCC V24, CMS/HCC V28) documented in this encounter Care Teams Manufacturing Supervisor 2Nd Shift Relationship Specialty Start Date End Date Cherelle Bailey MD [address] [place] [address] PCP - General Internal Medicine 07/29/19 documented as of this encounter
--- OUTSIDE RECORDS SUMMARY | 2025-04-14 13:07 | XMS_ITS | Encounter Summary ---
Author Organization [facility] Address [address] [place] [address] Care Team Providers Care Medical Liaison Name Role Phone Cherelle Bailey MD Primary Care Provider [phone] Encounter Details Date Type Department Care Team (Late st Contact Info) Description 06/26/2024 Lab Requisition [facility] - Main Lab [address] [facility] [place] [phone] Joaquin Calhoun MD [address] [place] [address] Anemia, unspecified; Pneumonia, unspecified organism; Sepsis, unspecified organism (CMS/HCC [...] 08/16/2025 11:30 AM EST Consult Gastroenterology - [place] [address] [place] [phone] Jennifer Tejada PA [address] [facility] [address] [place] [address] documented as of this encounter Procedures Procedure Name Priority Date/Time Associated Diagnosis Comments IRON AND TIBC Routine 06/28/2024 8:14 AM EST Anemia, unspecified Pneumonia, unspecified organism Sepsis, unspecified organism (CMS/HCC V24, CMS/HCC V28) COMPLETE BLOOD COUNT Routine 06/28/2024 8:14 AM EST Anemia, unspecified Pneumonia, unspecified organism Sepsis, unspecified organism (CMS/HCC V24, CMS/[facility] V28) THYROID STIMULATING HORMONE Routine 06/28/2024 8:14 AM EST Anemia, unspecified Pneumonia, unspecified organism Sepsis, unspecified organism (CMS/HCC V24, CMS/[facility] V28) FERRITIN Routine 06/28/2024 8:14 AM EST Anemia, unspecified Pneumonia, unspecified organism Sepsis, unspecified organism (CMS/HCC V24, CMS/[facility] V28) VITAMIN B12 Routine 06/28/2024 8:14 AM EST Anemia, unspecified Pneumonia, unspecified organism Sepsis, unspecified organism (CMS/[facility] V24, CMS/[facility] V28) BASIC METABOLIC PANEL Routine 06/28/2024 8:14 AM EST Anemia, unspecified Pneumonia, unspecified organism Sepsis, unspecified organism (CMS/HCC V24, CMS/[facility] V28) documented in this encounter Results * Vitamin B12 (06/28/2024 8:14 AM EST) Pathologist [facility] Vitamin B-12 496 250 - 900 pcg/mL LAB CHEMISTRY METHOD 06/28/2024 3:09 PM EST [facility] Blood Venous blood specimen / Unknown Venipuncture / Unknown 06/28/2024 8:14 AM EST 06/28/2024 10:46 AM EST us Joaquin Calhoun MD LAB BLOOD ORDERABLES Final Result [facility] LAB [address] [place] [address], * Thyroid stimulating hormone (06/28/2024 8:14 AM EST) [facility] TSH 0.52 0.40 - 4.00 mcIU/mL LAB CHEMISTRY METHOD 06/28/2024 2:53 PM EST [facility] Blood Venous blood specimen / Unknown Venipuncture / Unknown 06/28/2024 8:14 AM EST 06/28/2024 10:46 AM EST Joaquin Calhoun MD LAB BLOOD ORDERABLES Final Result Performing Organization Address City/[facility]/ZIP Co de Phone Number [facility] [address] [place] [address], [place] [phone] * Ferritin (06/28/2024 8:14 AM EST) Ferritin 173 8 - 252 ng/mL LAB CHEMISTRY METHOD 06/28/2024 3:09 PM EST [facility] Blood Venous blood specimen / Unknown Venipuncture / Unknown 06/28/2024 8:14 AM EST 06/28/2024 10:46 AM EST Joaquin Calhoun MD LAB BLOOD ORDERABLES Final Result Performing Organization Address City/[facility]/ZIP Co de Phone Number [facility] [address] [place] [address], [place] [phone] * Iron and TIBC (06/28/2024 8:14 AM EST) Iron 76 40 - 150 mcg/dL LAB CHEMISTRY METHOD 06/28/2024 2:46 PM EST [facility] TIBC 349 250 - 450 mcg/dL LAB CHEMISTRY METHOD 06/28/2024 2:46 PM EST [facility] Iron Saturation 22 15 - 50 % LAB CHEMISTRY METHOD 06/28/2024 2:46 PM EST [facility] Blood Venous blood specimen / Unknown Venipuncture / Unknown 06/28/2024 8:14 AM EST 06/28/2024 10:46 AM EST us Joaquin Calhoun MD LAB BLOOD ORDERABLES Final Result [facility] [address] [place] [address], [place] [phone] * (ABNORMAL) Basic metabolic panel (06/28/2024 8:14 AM EST) Sodium 137 133 - 145 mmol/L LAB CHEMISTRY METHOD 06/28/2024 2:46 PM EST [facility] Potassium 5.4 3.5 - 5.5 mmol/L LAB CHEMISTRY METHOD 06/28/2024 2:46 PM [facility] Chloride 104 96 - 110 mmol/L LAB CHEMISTRY METHOD 06/28/2024 2:46 PM [facility] CO2 24 21 - 32 mmol/L LAB CHEMISTRY METHOD 06/28/2024 2:46 PM [facility] Anion Gap 9 3 - 11 LAB CHEMISTRY METHOD 06/28/2024 2:46 PM [facility] Glucose 74 70 - 100 mg/dL LAB CHEMISTRY METHOD 06/28/2024 2:46 PM [facility] BUN 40(H) 5 - 25 mg/dL LAB CHEMISTRY METHOD 06/28/2024 2:46 PM [facility] Creatinine 1.20(H) 0.50 - 1.10 mg/dL LAB CHEMISTRY METHOD 06/28/2024 2:46 PM [facility] eGFR 44(L) >=60 mL/min/1. 73m2 LAB CHEMISTRY METHOD 06/28/2024 2:46 PM [facility] Comment:Calculation based on the Chronic Kidney Disease Epidemiology Collaboration (CKD-EPI) equation refit without adjustment for race. BUN/Creatinine Ratio 33.3 LAB CHEMISTRY METHOD 06/28/2024 2:46 PM [facility] Calcium 9.1 8.5 - 10.5 mg/dL LAB CHEMISTRY METHOD 06/28/2024 2:46 PM [facility] Blood Venous blood specimen / Unknown Venipuncture / Unknown 06/28/2024 8:14 AM EST 06/28/2024 10:46 AM EST Joaquin Calhoun MD LAB BLOOD ORDERABLES Final Result [facility] [address] [place] [address], * (ABNORMAL) Complete blood count (06/28/2024 8:14 AM EST) WBC 12.6(H) 4.8 - 10.8 K/mcL LAB HEMETOLOGY METHOD 06/28/2024 1:05 PM [facility] RBC 3.00(L) 3.80 - 4.80 M/mcL LAB HEMETOLOGY METHOD 06/28/2024 1:05 PM [facility] Hemoglobin 9.2(L) 11.5 - 16.0 g/dL LAB HEMETOLOGY METHOD 06/28/2024 1:05 PM [facility] Hematocrit 29.3(L) 35.0 - 47.0 % LAB HEMETOLOGY METHOD 06/28/2024 1:05 PM [facility] MCV 97.7 79.0 - 98.0 FL LAB HEMETOLOGY METHOD 06/28/2024 1:05 PM [facility] MCH 30.7 27.0 - 32.0 pcg LAB HEMETOLOGY METHOD 06/28/2024 1:05 PM [facility] MCHC 31.4(L) 32.0 - 37.0 g/dL LAB HEMETOLOGY METHOD 06/28/2024 1:05 PM [facility] RDW 14.6 11.0 - 15.0 % LAB HEMETOLOGY METHOD 06/28/2024 1:05 PM [facility] Platelets 691(H) 130 - 400 K/mcL LAB HEMETOLOGY METHOD 06/28/2024 1:05 PM EST [facility] MPV 9.2 7.0 - 11.0 FL LAB HEMETOLOGY METHOD 06/28/2024 1:05 PM EST [facility] NRBC 0.0 <1.0 % LAB HEMETOLOGY METHOD 06/28/2024 1:05 PM EST [facility] NRBC Absolute 0.00 <0.10 K/mcL LAB HEMETOLOGY METHOD 06/28/2024 1:05 PM EST [facility] Blood Venous blood specimen / Unknown Venipuncture / Unknown 06/28/2024 8:14 AM EST 06/28/2024 10:46 AM EST us Joaquin Calhoun MD LAB BLOOD ORDERABLES Final Result [facility] [address] [place] [address], documented in this encounter Visit Diagnoses Diagnosis Anemia, unspecified Pneumonia, unspecified organism Sepsis, unspecified organism (CMS/HCC V24, CMS/HCC V28) documented in this encounter Care Teams Medical Liaison Relationship Specialty Start Date End Date Cherelle Bailey MD [address] [place] [phone] PCP - General Internal Medicine 07/29/19 documented as of this encounter
== END 2025-04-14 11:58 | disposition home or self-care (01) ==
LOC: HO.RHES 11:00
PROVIDERS: PCP Hospitalist; Visit Provider Internal Medicine Rheumatology
DX: M79.641 Pain in right hand (principal); M79.642 Pain in left hand; Z79.52 Long term (current) use of systemic steroids
CPT/HCPCS: 99204

== ENCOUNTER → 2025-04-14 10:59 | Outpatient (BNVA) | payer MEDICARE, BC, SELFPAY | PROVIDERS: PCP Hospitalist; Visit Provider Internal Medicine Rheumatology | DX: M79.641 Pain in right hand (principal); M79.642 Pain in left hand; Z79.52 Long term (current) use of systemic steroids | CPT/HCPCS: 99202 ==